=== PATIENT | female | born 1960 | race Caucasian/White ===

== ENCOUNTER 2016-10-29 14:08 | Inpatient (IN) | payer OTHER, MEDICAID ==
--- NOTE | 2016-10-29 15:56 | EDPHY ---
H & P Time Seen by Provider: 10/29/16 15:30 HPI/ROS: Chief complaint. Pressure ulcers, concern for infection HPI. 56-year-old female presents to the emergency department with pressure ulcers that have been present for 2 years. Patient is wheelchair-bound because of MS. However the ulcers have become worse over the past 3-4 days. She has had previous surgery on the ulcers in terms of debridement and trying to close them. However they become worsened especially 1 on her right lower leg has now become quite red. She has had no fever but is more lethargic than usual. No chest discomfort or cough. No shortness of breath. No abdominal pain vomiting or diarrhea. She has an indwelling catheter and the urine is darker than usual. Patient was seen by surgeon at the wound clinic and the ulcers had photos taken of them which Dr. Cabrera in sent over prior to dressing the wound so we did not have to on wrap and then redressed the wound. The concern is for progressive infection. She also had a hematoma on the ankle today that Dr. Rick baeza evacuated at the wound clinic. There was no trauma to the ankle. ROS Constitutional. Increasing weakness and lethargy Eyes. no problems with vision ENT. no sore throat, no nasal drainage Cardiovascular. no chest pain Respiratory. no shortness of breath, no cough Abdominal. no abdominal pain, no nausea/vomiting, no diarrhea . no problems urinating MS. no calf pain/swelling, no neck/back pain, no joint pain Skin. Multiple pressure ulcers Lymph. no swollen glands Neuro. no headache, no dizziness, no difficulty walking or with speech Past Medical/Surgical History: MS and pressure ulcers Social History: , nonsmoker, no alcohol Smoking Status: Former smoker Physical Exam: General Appearance: Alert well-developed female in a wheelchair mild distress. Vital signs are stable however initial blood pressure is 85/62. Patient is afebrile Eyes: Pupils equal and round no pallor or injection. ENT, Mouth: Mucous membranes are moist. Respiratory: There are no retractions, lungs are clear to auscultation. Cardiovascular: Regular rate and rhythm. Gastrointestinal: Abdomen is soft and nontender, no masses, bowel sounds normal. Neurological: Awake and alert, sensory and motor exams grossly normal. Skin: Warm and dry, no rashes. Per Dr. Cabrera in the photos and measurements prior to dressing show an unstageable ulcer on the left buttock that measures 2.5 x 3 x 1.5 cm and tunnels 1 cm; there is an ulcer on the left knee that is stage II pressure ulcer measuring 3.5 x 2.8 x 0 cm; right hip pressure ulcer measuring 1 x 0.5 x 1 cm; right ankle pressure ulcer and hematoma this been evacuated measuring 6 x 5 x 1 cm and is described as stage IV. Musculoskeletal: Neck is supple nontender. Extremities symmetrical, full range of motion. Psychiatric: Patient is oriented X 3, there is no agitation. Constitutional: Initial Vital Signs Temperature (C) 36.7 C 10/29/16 14:23 Heart Rate 74 10/29/16 14:23 Respiratory Rate 18 10/29/16 14:23 Blood Pressure 85/65 L 10/29/16 14:23 O2 Sat (%) 95 10/29/16 14:23 O2 Delivery Mode Room Air O2 (L/minute) 2 Allergies/Adverse Reactions: Penicillins Allergy (Verified 04/05/15 14:22) Unknown Home Medications: Medication Instructions Recorded Baclofen [Baclofen 20 mg (*)] 20 mg PO DAILY@14 04/06/15 Baclofen [Baclofen 20 mg (*)] 40 mg PO BID@06,22 04/06/15 DULoxetine [Cymbalta 60 MG (*)] 60 mg PO HS 04/06/15 Gabapentin 100 mg PO TID 04/06/15 Gabapentin [Gabapentin 800 mg] 800 mg PO TID 04/06/15 Herbals/Supplements -Info Only 1 tab PO DAILY 04/06/15 Meloxicam [Mobic 7.5 mg] 7.5 mg PO HS 04/06/15 Vit #76/Iron,Carb/FA 1 each PO DAILY 04/06/15 [Prenatabs Rx Tablet] oxyCODONE IR [Oxycodone Ir (*)] 5 - 10 mg PO Q4 PRN #30 tab 04/09/15 Docusate Sodium [Colace 100 MG (*)] 100 mg PO DAILY 10/29/16 Interferon Beta-1B [Betaseron] 0.3 mg SQ Q48H 10/29/16 levETIRAcetam [Keppra 500 mg (*)] 500 mg PO BID 10/29/16 morphINE SR [MS Contin/Oramorph SR 30 mg PO BID@06,18 10/29/16 30 mg (*)] Medical Decision Making - Diagnostics Imaging Results: Imaging Impressions Chest X-Ray 10/29/16 15:49 Impression: 1. No acute abnormality. 2. Probable nipple artifacts projected over the lower hemithoraces, and old granulomata. When clinically feasible, PA and lateral upright views in the department with nipple markers is suggested. Findings and recommendations were discussed with TREV DIXON MD at 16:43, on 10/29/2016. One-view chest x-ray shows no obvious pneumonia. Procedures: IV normal saline. Sepsis workup. Urine in the Boyer catheter is fairly dark yellow but appears clear Morphine for pain. Zofran for nausea. Vancomycin intravenously after cultures ED Course/Re-evaluation: Recheck at 5:25 p.m.. Patient is resting comfortably. Patient and I discussed imaging and lab results. We discussed treatment plan including recommendation for admission. She expresses understanding and agreement I consulted and discussed the case with Dr. Acosta, hospitalist, who sees the patient in the emergency department Differential Diagnosis: Patient has multiple ulcers and now extending erythema. I considered sepsis as well. She also has a urinary tract infection. She has a history of MR . Plan is admission, wound care, antibiotics - Data Points Laboratory Results: Laboratory Results 10/29/16 16:08 10/29/16 16:08 10/29/16 10/29/16 10/29/16 16:50 16:08 16:08 WBC RBC Hgb Hct MCV MCH MCHC RDW Plt Count MPV Neut % (Auto) Lymph % (Auto) Logan % (Auto) Eos % (Auto) Baso % (Auto) Nucleat RBC Rel Count Absolute Neuts (auto) Absolute Lymphs (auto) Absolute Monos (auto) Absolute Eos (auto) Absolute Basos (auto) Absolute Nucleated RBC Immature Gran % Immature Gran # PT 13.8 SEC SEC (12.0-15.0) INR 1.07 (0.83-1.16) APTT 29.0 SEC SEC (23.0-38.0) VBG Lactic Acid Sodium 136 mEq/L mEq/L (134-144) Potassium 4.7 mEq/L mEq/L (3.5-5.2) Chloride 100 mEq/L mEq/L (97-110) Carbon Dioxide 25 mEq/l mEq/l (22-31) Anion Gap 11 mEq/L mEq/L (8-16) BUN 18 mg/dL mg/dL (7-23) Creatinine 0.5 mg/dL L mg/dL (0.6-1.0) Estimated GFR > 60 Glucose 97 mg/dL mg/dL (70-100) Calcium 9.1 mg/dL mg/dL (8.5-10.4) Total Bilirubin 0.4 mg/dL mg/dL (0.1-1.4) Procalcitonin Urine Color JEANMARIE Urine Appearance MODERATELY TURBID Urine pH 5.0 (5.0-7.5) Ur Specific [place] 1.021 (1.002-1.030) Urine Protein 1+ H (NEGATIVE) Urine Ketones NEGATIVE (NEGATIVE) Urine Blood 2+ H (NEGATIVE) Urine Nitrate POSITIVE H (NEGATIVE) Urine Bilirubin NEGATIVE (NEGATIVE) Urine Urobilinogen NEGATIVE EU EU (0.2-1.0) Ur Leukocyte Esterase 3+ H (NEGATIVE) Urine RBC 25-50 /hpf H /hpf (0-3) Urine WBC 50-182 /hpf H /hpf (0-3) Ur Epithelial Cells NONE SEEN /lpf /lpf (NONE-1+) Urine Bacteria 4+ /hpf H /hpf (NONE SEEN) Urine Mucus 4+ /lpf H /lpf (NONE-1+) Urine Glucose NEGATIVE (NEGATIVE) 10/29/16 10/29/16 10/29/16 16:08 16:04 16:00 WBC 8.78 10^3/uL 10^3/uL (3.80-9.50) RBC 4.02 10^6/uL L 10^6/uL (4.18-5.33) Hgb 10.9 g/dL L g/dL (12.6-16.3) Hct 35.2 % L % (38.0-47.0) MCV 87.6 fL fL (81.5-99.8) MCH 27.1 pg L pg (27.9-34.1) MCHC 31.0 g/dL L g/dL (32.4-36.7) RDW 16.6 % H % (11.5-15.2) Plt Count 596 10^3/uL H 10^3/uL (150-400) MPV 9.2 fL fL (8.7-11.7) Neut % (Auto) 61.9 % % (39.3-74.2) Lymph % (Auto) 27.7 % % (15.0-45.0) Logan % (Auto) 7.1 % % (4.5-13.0) Eos % (Auto) 2.2 % % (0.6-7.6) Baso % (Auto) 0.5 % % (0.3-1.7) Nucleat RBC Rel Count 0.0 % % (0.0-0.2) Absolute Neuts (auto) 5.45 10^3/uL 10^3/uL (1.70-6.50) Absolute Lymphs (auto) 2.43 10^3/uL 10^3/uL (1.00-3.00) Absolute Monos (auto) 0.62 10^3/uL 10^3/uL (0.30-0.80) Absolute Eos (auto) 0.19 10^3/uL 10^3/uL (0.03-0.40) Absolute Basos (auto) 0.04 10^3/uL 10^3/uL (0.02-0.10) Absolute Nucleated RBC 0.00 10^3/uL 10^3/uL (0-0.01) Immature Gran % 0.6 % % (0.0-1.1) Immature Gran # 0.05 10^3/uL 10^3/uL (0.00-0.10) PT INR APTT VBG Lactic Acid 0.8 mmol/L mmol/L (0.7-2.1) Sodium Potassium Chloride Carbon Dioxide Anion Gap BUN Creatinine Estimated GFR Glucose Calcium Total Bilirubin Procalcitonin 0.11 ng/mL H ng/mL (0.02-0.10) Urine Color Urine Appearance Urine pH Ur Specific [place] Urine Protein Urine Ketones Urine Blood Urine Nitrate Urine Bilirubin Urine Urobilinogen Ur Leukocyte Esterase Urine RBC Urine WBC Ur Epithelial Cells Urine Bacteria Urine Mucus Urine Glucose Medications Given: Baclofen (Baclofen) 40 mg PO BID@,22 ANNE Stop: 04/27/17 21:59 Last Admin: 10/29/16 20:44 Dose: 40 mg Duloxetine HCl (Cymbalta) 60 mg PO [facility] Stop: 04/27/17 20:59 Last Admin: 10/29/16 20:45 Dose: 60 mg Gabapentin (Neurontin) 800 mg PO TID [facility] Stop: 04/27/17 21:59 Last Admin: 10/29/16 20:44 Dose: 800 mg Gabapentin (Neurontin) 100 mg PO TID [facility] Stop: 04/27/17 21:59 Last Admin: 10/29/16 20:46 Dose: 100 mg Levetiracetam (Keppra) 500 mg PO BID [facility] Stop: 04/27/17 20:59 Last Admin: 10/29/16 20:45 Dose: 500 mg Miscellaneous Medication (Meloxicam [Mobic 7.5 Mg]) 7.5 mg PO HS [facility] Stop: 04/27/17 20:59 Last Admin: 10/29/16 20:52 Dose: Not Given Oxycodone HCl (Oxycodone Ir) 5 - 10 mg PO Q4 PRN PRN Reason: Pain, Severe Able to Take PO Stop: 11/08/16 19:15 Last Admin: 10/29/16 20:46 Dose: 10 mg Discontinued Medications Vancomycin/Sodium Chloride (Vancomycin 1 Gm (Premix)) 250 mls @ 250 mls/hr IV EDNOW ONE PRN Reason: Protocol Stop: 10/29/16 16:57 Last Admin: 10/29/16 16:30 Dose: 250 mls Sodium Chloride (Ns) 1,000 mls @ 0 mls/hr IV EDNOW ONE; Wide Open PRN Reason: Protocol Stop: 10/29/16 16:15 Last Admin: 10/29/16 16:29 Dose: 1,000 mls Levofloxacin/Dextrose (Levaquin 750 Mg (Premix)) 150 mls @ 100 mls/hr IV EDNOW ONE PRN Reason: Protocol Stop: 10/29/16 18:54 Last Admin: 10/29/16 18:48 Dose: 150 mls Miscellaneous Medication (Interferon Beta-1b [Betaseron]) 0.3 mg SQ Q48H [facility] Stop: 04/27/17 19:29 Last Admin: 10/29/16 20:50 Dose: Not Given Morphine Sulfate (Morphine) 6 mg IVP EDNOW ONE Stop: 10/29/16 15:59 Last Admin: 08/09/17 16:18 Dose: 6 mg Ondansetron HCl (Zofran) 4 mg IVP EDNOW ONE Stop: 10/29/16 15:59 Last Admin: 10/29/16 16:18 Dose: 4 mg Departure - Departure Disposition: [facility] Acute Clinical Impression: Urinary tract infection Cellulitis Qualifiers: Site of cellulitis: extremity Site of cellulitis of extremity: lower extremity Laterality: right Qualified Code(s): L03.115 - Cellulitis of right lower limb Condition: Fair
[2016-10-29] MEDS ORDERED: VANCOMYCIN HCL/NORMAL SALINE 250 ML IV ONE (15:58)
[2016-10-29] MEDS ORDERED: ONDANSETRON 4 MG/2 ML VIAL IVP ONE (15:58)
[2016-10-29] MEDS ORDERED: NS 1,000 ML IV ONE (16:14)
[2016-10-29 16:18] LABS: % IMMATURE GRANULYOCYTES 0.6 % (0.0-1.1); ABSOLUTE IMMATURE GRANULOCYTES 0.05 10^3/uL (0.00-0.10); ADD DIFF? NO; ADD MORPH? NO; ADD SCAN? NO; ATYPICAL LYMPHOCYTE FLAG 50 (0-99); FRAGMENT RBC FLAG 0 (0-99); HEMATOCRIT 35.2 % (38.0-47.0); HEMOGLOBIN 10.9 g/dL (12.6-16.3); LEFT SHIFT FLG 0 (0-99); LIPEMIA HEMOLYSIS FLAG 80 (0-99); MEAN CELL HEMOGLOBIN 27.1 pg (27.9-34.1); MEAN CELL VOLUME 87.6 fL (81.5-99.8); MEAN PLATELET VOLUME 9.2 fL (8.7-11.7); PLATELET CLUMPS FLAG 20 (0-99); PLATELET COUNT 596 10^3/uL (150-400); RED BLOOD CELL COUNT 4.02 10^6/uL (4.18-5.33); RED CELL DISTRIBUTION WIDTH 16.6 % (11.5-15.2)
[2016-10-29 16:28] LABS: INR 1.07 (0.83-1.16); PROTIME(PATIENT) 13.8 SEC (12.0-15.0)
[2016-10-29 17:09] LABS: COLOR AMBER; LEUKOCYTE ESTERASE,URINE 3+ (NEGATIVE); NITRITE,URINE POSITIVE (NEGATIVE)
[2016-10-29 17:18] LABS: BACTERIA 4+ /hpf (NONE SEEN); MUCUS 4+ /lpf (NONE-1+); RBC,URINE 25-50 /hpf (0-3); WBC,URINE 50-182 /hpf (0-3)
[2016-10-29 17:18] LABS: ANION GAP 11 mEq/L (8-16); BILIRUBIN,TOTAL 0.4 mg/dL (0.1-1.4); CALCIUM 9.1 mg/dL (8.5-10.4); CARBON DIOXIDE 25 mEq/l (22-31); CHLORIDE 100 mEq/L (97-110); CREATININE 0.5 mg/dL (0.6-1.0); GLOMERULAR FILTRATION RATE > 60; GLUCOSE 97 mg/dL (70-100); POTASSIUM 4.7 mEq/L (3.5-5.2); SODIUM 136 mEq/L (134-144)
[2016-10-29] MEDS ORDERED: ONDANSETRON 4 MG/2 ML VIAL IVP PRN (18:53)
[2016-10-29] MEDS ORDERED: ACETAMINOPHEN 325 MG TAB PO PRN (18:53)
--- NOTE | 2016-10-29 19:06 | GHP ---
[f rep st] HISTORY AND PHYSICAL DATE OF ADMISSION: 10/29/2016 CHIEF COMPLAINT: Weakness and pressure ulcers. HISTORY OF PRESENT ILLNESS: This is a 56-year-old female with severe multiple sclerosis who is wheelchair-bound, who was sent in from Dr. Vaughn's office due to worsening weakness. She was seeing Dr. Vaughn for treatment of her multiple wounds which include a left buttock un-stageable ulcer, left knee stage II pressure ulcer, right hip 1 x 0.5 x 1 cm pressure ulcer, and right ankle 6 x 5 x 1 stage IV pressure ulcer. Patient tells me that she is very tired which she attributes to not sleeping well. She has been tolerating a regular diet. She does have a Boyer catheter in place and has not noticed any changes in her urine color or odor. She does not think she has a urinary tract infection. She has not been having any fevers or chills. She is unsure why she has not been sleeping well. PAST MEDICAL HISTORY: Multiple sclerosis. PAST SURGICAL HISTORY: Inguinal hernia repair, cholecystectomy, wound debridement, multiple complex wound closures. MEDICATIONS: Refer to [facility] for details. ALLERGIES: Penicillin. SOCIAL HISTORY: She is and lives with her who cares for her. She denies any alcohol, tobacco, or illicit drug use. FAMILY HISTORY: Significant for coronary artery disease in her mother. REVIEW OF SYSTEMS: Comprehensive 10-point review of systems was done and is negative, except for as mentioned in the HPI. PHYSICAL EXAM: VITAL SIGNS: Blood pressure 90/63, pulse 71, respiratory rate 16, O2 saturation 97% on room air, temperature afebrile. GENERAL: No acute distress. Chronically ill-appearing. HEAD: Normocephalic, atraumatic. EYES: PERRLA. Sclerae anicteric. MOUTH: Moist mucous membranes. NECK: Supple. No lymphadenopathy. CARDIOVASCULAR: S1, S2, no JVD, no lower extremity edema. PULMONARY: Lungs are clear. No wheezes, rales, or rhonchi. Slightly diminished in bilateral bases. ABDOMEN: Soft, nontender, nondistended. No guarding or rebound tenderness. Normoactive bowel sounds. EXTREMITIES: No clubbing or cyanosis. NEURO: Face is symmetric. Cranial nerves 2-12 grossly intact. The patient has weakness in both her legs and is wheelchair-bound. SKIN: There are multiple pressure ulcers present on admission including left buttock, left knee, right hip, and right ankle. DIAGNOSTICS: WBC is 8.78, hemoglobin 10.9, hematocrit 35.2, platelets 596. INR 1.07. Lactic acid was 0.8. Sodium 136, potassium 4.7, chloride 100, BUN 18 , creatinine 0.5, glucose 97. UA positive nitrate, 3+ leukocyte esterase, 50- 182 WBCs. Urine culture from March of 2013 grew Klebsiella and Staph aureus. The Staph aureus was MSSA. Chest x-ray shows no acute abnormalities with the exception of probable nipple artifacts projecting over the lower hemothoraces. ASSESSMENT: This is a 56-year-old female who is wheelchair-bound with history of multiple sclerosis, who was sent to the emergency department due to: 1. Weakness which could be due to the fact that she is not sleeping well. Once again, the patient does not think she has a urinary tract infection. Her UA is consistent with a urinary tract infection; however, she has a chronic Boyer and this result could very well be due to chronic colonization. In any event, she was given a dose of vancomycin and Levaquin in the emergency department. Urine cultures have been sent. For now, I will defer further antibiotics pending further workup. Will order a procalcitonin level. 2. Left buttock un-stageable ulcer, 2.5 x 3 x 1.5 cm; left knee stage 2 pressure ulcer; right hip 1 x 0.5 x 1 cm; right ankle 6 x 5 x 1 stage 4 pressure ulcers that were all present on admission. PLAN: Will consult the patient's surgeon for further wound care advice. The patient is at high risk for VTE and will be started on low molecular weight heparin while here in the hospital. ADDENDUM: After reviewing the patient's home medications, I am concerned that polypharmacy may be contributing to her overall mental status, considering she is on multiple sedatives including short-acting oxycodone, sustained-release morphine, high-dose gabapentin, Keppra, and baclofen. For now, her home medications will be continued, but we may need to consider adjusting the dosages. /[id number]/MODL and [id number]/MODL, 10/29/161917 [facility]
[2016-10-29] MEDS ORDERED: INTERFERON BETA 0.3 MG SQ SCH (19:30)
[2016-10-29] MEDS: BACLOFEN 20 MG TAB PO SCH (20:44)
[2016-10-29] MEDS: GABAPENTIN 400 MG CAP PO SCH (20:44)
[2016-10-29] MEDS: DULoxetine 60 MG CAP PO SCH (20:45)
[2016-10-29] MEDS: levETIRAcetam 500 MG TAB PO SCH (20:45)
[2016-10-29] MEDS: GABAPENTIN 100 MG CAP PO SCH (20:46)
[2016-10-29] MEDS: oxyCODONE IR 5 MG TAB PO PRN (20:46)
[2016-10-29] MEDS: MELOXICAM PO SCH (20:52)
[2016-10-30] MEDS: oxyCODONE IR 5 MG TAB PO PRN ×4 (00:45→20:27)
[2016-10-30] MEDS: morphINE SR 30 MG TAB PO SCH ×2 (04:43→18:12)
[2016-10-30] MEDS: BACLOFEN 20 MG TAB PO SCH ×2 (04:43→21:10)
[2016-10-30 05:27] LABS: % IMMATURE GRANULYOCYTES 0.5 % (0.0-1.1); ABSOLUTE IMMATURE GRANULOCYTES 0.03 10^3/uL (0.00-0.10); ADD DIFF? NO; ADD MORPH? NO; ADD SCAN? NO; ATYPICAL LYMPHOCYTE FLAG 20 (0-99); FRAGMENT RBC FLAG 0 (0-99); HEMOGLOBIN 8.6 g/dL (12.6-16.3); LEFT SHIFT FLG 0 (0-99); LIPEMIA HEMOLYSIS FLAG 80 (0-99); MEAN CELL HEMOGLOBIN 27.1 pg (27.9-34.1); MEAN CELL HEMOGLOBIN CONCENTR. 30.7 g/dL (32.4-36.7); MEAN CELL VOLUME 88.3 fL (81.5-99.8); MEAN PLATELET VOLUME 9.3 fL (8.7-11.7); PLATELET CLUMPS FLAG 0 (0-99); PLATELET COUNT 486 10^3/uL (150-400); RED BLOOD CELL COUNT 3.17 10^6/uL (4.18-5.33); RED CELL DISTRIBUTION WIDTH 16.5 % (11.5-15.2)
[2016-10-30 05:38] LABS: ALANINE AMINOTRANSFERASE 80 IU/L (9-52); ALBUMIN 2.5 g/dL (3.5-5.0); ALKALINE PHOSPHATASE 243 IU/L (38-126); ANION GAP 7 mEq/L (8-16); ASPARTATE AMINOTRANSFERASE 93 IU/L (14-46); BILIRUBIN,TOTAL 0.2 mg/dL (0.1-1.4); CALCIUM 8.3 mg/dL (8.5-10.4); CARBON DIOXIDE 25 mEq/l (22-31); CHLORIDE 105 mEq/L (97-110); CREATININE 0.5 mg/dL (0.6-1.0); GLOMERULAR FILTRATION RATE > 60; GLUCOSE 95 mg/dL (70-100); POTASSIUM 4.2 mEq/L (3.5-5.2); SODIUM 137 mEq/L (134-144); TOTAL PROTEIN 6.5 g/dL (6.3-8.2)
[2016-10-30] MEDS: ENOXAPARIN 40 MG/0.4 ML SYR SC SCH (07:50)
[2016-10-30] MEDS: levETIRAcetam 500 MG TAB PO SCH ×2 (07:51→20:23)
[2016-10-30] MEDS: GABAPENTIN 400 MG CAP PO SCH (07:51)
[2016-10-30] MEDS: GABAPENTIN 100 MG CAP PO SCH ×3 (07:51→21:10)
[2016-10-30] MEDS: PRENATAL VIT 1 EACH TAB PO SCH (07:51)
[2016-10-30] MEDS: DOCUSATE SODIUM 100 MG CAP PO SCH (07:51)
[2016-10-30] MEDS ORDERED: Herbals/Supplements -Info Only PO SCH (09:00)
[2016-10-30] MEDS ORDERED: INTERFERON BETA 0.3 MG SQ SCH (09:00)
--- NOTE | 2016-10-30 09:09 | HOSPPROG ---
Hospitalist Progress Note Assessment/Plan: patient is a 56-year-old female with severe multiple sclerosis and is wheelchair bound. She was sent over by 's office due to worsening weakness. She has had treatment for multiple wounds which include a left buttock unstageable ulcer, left knee stage II pressure ulcer, right hip pressure ulcer and right ankle ulcer. She complains of being very tired and not being able to sleep. Today is my 1st encounter with the patient. Chart reviewed. * Weakness likely multifactorial/ not sleeping well, has MS, ongoing anemia could also be attributed to use of Oxy IR, long-acting morphine, gabapentin , Keppra, and baclofen * anemia will recheck in a.m. could be dilutional * elevated LFTs has no abdominal pain/get a repeat level in a.m. * pyuria with a minimally elevated procalcitonin level suspect she has chronic colonization in the meantime will follow up with urine culture and blood cultures *chronic pain on continuous/chronic opioids spoke arie Kia about my concern of her high dosages of pain meds she does not want them altered/ will cont monitoring her/if cont to be sedate , will decrease doses; *very advanced MS she is unable to remember her neurologist name *severe protein calorie malnutrition w a BMI of 17 will ask dietary to see * multiple skin breakdowns/ulcers exposed ankle tendon/Dr Vaughn to order further imaging * DVT prophylaxis:LMWH *Plan : imaging of ankle tendon, decrease gabapentin a bit, recheck labs in a.m. , will ask PT and OT to see/ if she doesn't improve, will ask neurology to further evaluate to r/o MS exacerbation Subjective: Kia said she is feeling fine. Has no complaints. Objective: Vital Signs Temp Pulse Resp BP Pulse Ox 36.7 C 78 16 97/61 L 99 10/30/16 07:38 10/30/16 07:38 10/30/16 07:38 10/30/16 07:38 10/30/16 07:38 Laboratory Results 10/30/16 05:06 10/30/16 05:06 10/29/16 10/30/16 10/31/16 05:59 05:59 05:59 Intake Total 1550 Output Total 575 Balance 975 PT 13.8 SEC (12.0-15.0) 10/29/16 16:08 INR 1.07 (0.83-1.16) 10/29/16 16:08 - Physical Exam Constitutional: chronically ill appearing, cachectic, No appears nourished Eyes: PERRL Ears, Nose, Mouth, Throat: hearing normal Cardiovascular: regular rate and rhythym Respiratory: no respiratory distress Skin: warm, other (did not evaluate her wounds in detail but discussed them with the computer language coder and Dr Vaughn) Musculoskeletal: generalized weakness Neurologic: other (alert but very soft spoken) Psychiatric: interacting appropriately ICD10 Worksheet Patient Problems: Problems Problem Status Onset Cellulitis Acute Urinary tract infection Acute Chronic wound of extremity Acute
--- NOTE | 2016-10-30 10:26 | WOCRNPDOC ---
WOCRN Advanced Assessment Note - Skin Integrity Problem, Advanced Assess Left Knee Pressure Injury Dressing Type: Allevyn Life Dressing Description: Clean/Dry, Intact Exudate Amount: Minimal Exudate Characteristic(s): Serosanguinous Integumentary Issue Intervention: Dressing Changed, Dressing Initialed & Dated Tayla Wound Tissue: Erythema (minimal) Wound Bed Constitution: Granulation Tissue (100%), Undermining (7-8 oclock 0.3 cm ) Wound Edges: Attached (10-5 oclock), Epibole (from 6-9 oclock) Site Odor: None Site Measurement - Head-to-Toe Length X Width X Depth (cm): 2.7x2.9x0.4 Pressure Injury Stage: Stage 3 Pressure Injury Present on Admit: Yes Skin Integrity Problem Comment: Left medial knee pressure injury. Right Greater Trochanter Pressure Injury Dressing Type: Allevyn Life, Plain Packing Dressing Description: Intact, Shadowed Exudate Characteristic(s): Sanguinopurulent Integumentary Issue Intervention: Dressing Changed, Dressing Initialed & Dated Tayla Wound Tissue: Erythema Wound Bed Constitution: Tunneling (12 oclock 4.5 cm and 7 oclock: 3.6 cm), Undermining (2.0 cm), Mixed Loose & Adhered Slough/Eschar Wound Edges: Not Attached Site Measurement - Head-to-Toe Length X Width X Depth (cm): Lateral: 1.5x1.4x1, Then 3 smaller unstagable wounds are located medial to the previous wound: 2.5x2x0.2 and then the most medial: 1x1x0.3. Pressure Injury Stage: Stage 4 Skin Integrity Problem Comment: Stage 4 pressure injury tunnels underneath the 3 smaller slough filled wounds medial to the original wound. All wounds will likely join into a large stage 4 again. Patient had a previous stage 4 pressure injury on bilateral greater trochanters which were closed by [facility] by primary intervention several months ago. The Left hip stage 4 is currently intact. Wound was flushed with ns and then repacked with cutimed sorbact packing and covered with allevyn life. A 3 cm tail was left out. Esha WREN in room for all care. Left Sacrum Pressure Injury Dressing Type: Allevyn Life, Hydrofera Blue Dressing Description: Clean/Dry, Intact Exudate Amount: Moderate Exudate Characteristic(s): Serosanguinous Integumentary Issue Intervention: Dressing Changed, Dressing Initialed & Dated Tayla Wound Tissue: Erythema (minimal) Wound Bed Color: Black, Yellow, Good Wound Bed Constitution: Undermining (5-2 oclock 0.5 to 2.7 cm at 10 oclock and then back to 0.5 cm (10 oclock is the deepest)), Mixed Loose & Adhered Slough/ Eschar (100%) Wound Edges: Not Attached Site Odor: Slight Site Measurement - Head-to-Toe Length X Width X Depth (cm): 2.5x1.9x1.7 Pressure Injury Stage: Stage 4 Pressure Injury Present on Admit: Yes Skin Integrity Problem Comment: Wound is 100% necrotic. There are several scars in the area and [facility] patient has had both a Advanced Tissue Closure proceedure by Dr. Vicente at [facility] and a myocutaneous flap to the area performed by Dr. Cosme within the past year. Per report this wound was completely closed and is now reopening. Flushed with ns and gauze. Iodoflex applied to wound bed. Covered with non border foam and secured with allevyn. Allergy cross check done. Right Medial Ankle Surgical Wound/Incision Dressing Type: Alginate, Allevyn Life Dressing Description: Saturated Exudate Amount: Excessive Exudate Characteristic(s): Serosanguinous Integumentary Issue Intervention: Dressing Changed, Dressing Initialed & Dated Tayla Wound Tissue: Erythema, Hot, Swollen, Painful/Tender Tayla Wound Swelling: Moderate Wound Bed Constitution: Smooth Tissue, Tunneling (9 oclock 2.1 cm tunnel), Undermining (12-3 oclock 2.7 cm, 4-6 oclock 2.6 cm, ) Site Measurement - Head-to-Toe Length X Width X Depth (cm): 3.4x2.2x1.2 Skin Integrity Problem Comment: Per report from [facility], this is a surgical wound where the patient had a large hematoma which was evacuated by Dr. Vaughn. Area was flushed with ns. Repacked with silver aquacel and covered with allevyn life dressing. Right Lateral Ankle Pressure Injury Dressing Type: Allevyn Life Dressing Description: Clean/Dry, Intact Exudate Amount: Minimal Exudate Characteristic(s): Serosanguinous Integumentary Issue Intervention: Visualized Under Dressing Tayla Wound Tissue: Erythema Wound Bed Color: Red Wound Bed Constitution: Hypergranulation Wound Edges: Epithelizing, Attached Site Measurement - Head-to-Toe Length X Width X Depth (cm): 1x1.3xraised Pressure Injury Stage: Stage 3 Pressure Injury Present on Admit: Yes
[2016-10-30] MEDS ORDERED: BACLOFEN 20 MG TAB PO SCH (14:00)
[2016-10-30] MEDS ORDERED: NS 250 ML IV ONE (15:58)
[2016-10-30] MEDS: INTERFERON BETA 0.3 MG SQ SCH (16:40)
[2016-10-30] MEDS: GABAPENTIN 300 MG CAP PO SCH ×2 (16:40→21:11)
[2016-10-30] MEDS: DULoxetine 60 MG CAP PO SCH (20:23)
--- NOTE | 2016-10-30 20:48 | SOAPPROG ---
SOAP Progress Note Assessment/Plan: Assessment: Kia is well known to me. Debrided in wound healing center on 10/29 sleeping today. Will debride tomorrow and possible wound vac Plan: 10/30/16 20:47 Objective: Vital Signs Temp Pulse Resp BP Pulse Ox 37.2 C 89 165 H 92/55 L 97 10/30/16 19:59 10/30/16 19:59 10/30/16 19:59 10/30/16 19:59 10/30/16 19:59 Laboratory Results 10/30/16 05:06 10/30/16 05:06 10/29/16 10/30/16 10/31/16 05:59 05:59 05:59 Intake Total 1550 930 Output Total 575 650 Balance 975 280 PT 13.8 SEC (12.0-15.0) 10/29/16 16:08 INR 1.07 (0.83-1.16) 10/29/16 16:08 ICD10 Worksheet Patient Problems: Problems Problem Status Onset Cellulitis Acute Urinary tract infection Acute Chronic wound of extremity Acute
[2016-10-30] MEDS: MELOXICAM PO SCH (21:07)
[2016-10-31] MEDS: morphINE SR 30 MG TAB PO SCH (04:53)
[2016-10-31] MEDS: BACLOFEN 20 MG TAB PO SCH (04:53)
[2016-10-31 05:01] LABS: % IMMATURE GRANULYOCYTES 0.4 % (0.0-1.1); ABSOLUTE IMMATURE GRANULOCYTES 0.03 10^3/uL (0.00-0.10); ADD DIFF? NO; ADD MORPH? NO; ADD SCAN? NO; ATYPICAL LYMPHOCYTE FLAG 30 (0-99); FRAGMENT RBC FLAG 0 (0-99); HEMATOCRIT 26.4 % (38.0-47.0); HEMOGLOBIN 8.1 g/dL (12.6-16.3); LEFT SHIFT FLG 0 (0-99); LIPEMIA HEMOLYSIS FLAG 80 (0-99); MEAN CELL HEMOGLOBIN 27.6 pg (27.9-34.1); MEAN CELL HEMOGLOBIN CONCENTR. 30.7 g/dL (32.4-36.7); MEAN CELL VOLUME 90.1 fL (81.5-99.8); MEAN PLATELET VOLUME 9.4 fL (8.7-11.7); PLATELET CLUMPS FLAG 20 (0-99); PLATELET COUNT 428 10^3/uL (150-400); RED BLOOD CELL COUNT 2.93 10^6/uL (4.18-5.33); RED CELL DISTRIBUTION WIDTH 16.6 % (11.5-15.2)
[2016-10-31 05:18] LABS: ALANINE AMINOTRANSFERASE 84 IU/L (9-52); ALBUMIN 2.2 g/dL (3.5-5.0); ALKALINE PHOSPHATASE 334 IU/L (38-126); ANION GAP 6 mEq/L (8-16); ASPARTATE AMINOTRANSFERASE 107 IU/L (14-46); BILIRUBIN,TOTAL 0.2 mg/dL (0.1-1.4); CALCIUM 8.5 mg/dL (8.5-10.4); CARBON DIOXIDE 29 mEq/l (22-31); CHLORIDE 104 mEq/L (97-110); CREATININE 0.5 mg/dL (0.6-1.0); GLOMERULAR FILTRATION RATE > 60; GLUCOSE 88 mg/dL (70-100); POTASSIUM 4.8 mEq/L (3.5-5.2); SODIUM 139 mEq/L (134-144); TOTAL PROTEIN 5.7 g/dL (6.3-8.2)
[2016-10-31] MEDS: ENOXAPARIN 40 MG/0.4 ML SYR SC SCH (09:06)
--- NOTE | 2016-10-31 09:49 | HOSPPROG ---
Hospitalist Progress Note Assessment/Plan: patient is a 56-year-old female with severe multiple sclerosis and is wheelchair bound. She was sent over by 's office due to worsening weakness. She has had treatment for multiple wounds which include a left buttock unstageable ulcer, left knee stage II pressure ulcer, right hip pressure ulcer and right ankle ulcer. She complains of being very tired and not being able to sleep. *minimally responsive patient's RN noted patient snores loudly and O2 sats decrease to 72% opens her eyes w sternal rub and keeps saying she is sleepy will get a stat ABG to eval for Co2 retention/ stat CT of her head will hold all narcotics and gabapentin for now *weakness likely multifactorial/ not sleeping well, has MS, ongoing anemia could also be attributed to use of Oxy IR, long-acting morphine, gabapentin , Keppra, and baclofen * anemia cont to trend down will check stools for OB check iron studies * elevated LFTs cont to trend up/ check hepatitis panel will evaluate her home meds * pyuria with a minimally elevated procalcitonin level due to change in her mental status, will start treatment suspect she has chronic colonization in the meantime will follow up with urine culture blood cx shows no growth initiate Ceftriaxone/ has had no reaction to cefazolin/ will monitor *chronic pain on continuous/chronic opioids hold *very advanced MS she is unable to remember her neurologist name will ask neurology to evaluate *severe protein calorie malnutrition w a BMI of 17 will ask dietary to see * multiple skin breakdowns/ulcers exposed ankle tendon/Dr Vaughn to see today * DVT prophylaxis:LMWH *Plan : stat ABG, stat CT of head/ start abx therapy, ask neurology to see Subjective: Kia awakens w sternal rub/ says she is sleepy. Objective: Vital Signs Temp Pulse Resp BP Pulse Ox 35.9 C L 82 12 84/54 L 94 10/31/16 08:00 10/31/16 08:00 10/31/16 08:00 10/31/16 08:00 10/31/16 08:00 Laboratory Results 10/31/16 04:51 10/31/16 04:51 10/30/16 10/31/16 11/01/16 05:59 05:59 05:59 Intake Total 1550 930 Output Total 575 1300 Balance 975 -370 PT 13.8 SEC (12.0-15.0) 10/29/16 16:08 INR 1.07 (0.83-1.16) 10/29/16 16:08 - Physical Exam Constitutional: chronically ill appearing Cardiovascular: regular rate and rhythym Respiratory: no respiratory distress Genitourinary: retana in urethra Neurologic: other (very little interaction) ICD10 Worksheet Patient Problems: Problems Problem Status Onset Cellulitis Acute Urinary tract infection Acute Chronic wound of extremity Acute
[2016-10-31 09:50] LABS: BASE EXCESS 1.5 mEq/L (-2.5-2.5); BICARBONATE 28 mEq/L (22-26); MEASURED OXYGEN SATURATION 98 % (92-95); PCO2 56 mmHg (34-38); PO2 96 mmHg (65-75); TCO2 30 mEq/L (23-27)
[2016-10-31] MEDS ORDERED: LIDOCAINE 1% *Not for Epidural 20 ML MDV NB STA (09:50)
[2016-10-31] MEDS: GABAPENTIN 100 MG CAP PO SCH (09:59)
[2016-10-31] MEDS: DOCUSATE SODIUM 100 MG CAP PO SCH (09:59)
[2016-10-31] MEDS: GABAPENTIN 300 MG CAP PO SCH (10:00)
[2016-10-31] MEDS: levETIRAcetam 500 MG TAB PO SCH (10:00)
[2016-10-31] MEDS: PRENATAL VIT 1 EACH TAB PO SCH (10:01)
[2016-10-31] MEDS: NS 1,000 ML IV SCH ×2 (10:16→17:18)
--- NOTE | 2016-10-31 13:04 | SOAPPROG ---
SOAP Progress Note Assessment/Plan: Assessment: Kia is well known to me. She is somulent today. Head CT performed. I asked Efraín to come in and discuss goals of care Will wait on debridement until we know the course Plan: 10/30/16 20:47 10/31/16 13:03 Objective: Vital Signs Temp Pulse Resp BP Pulse Ox 35.8 C L 86 12 101/58 L 93 10/31/16 12:00 10/31/16 12:00 10/31/16 12:00 10/31/16 12:00 10/31/16 12:00 Laboratory Results 10/31/16 04:51 10/31/16 04:51 10/30/16 10/31/16 11/01/16 05:59 05:59 05:59 Intake Total 1550 930 Output Total 575 1300 250 Balance 975 -370 -250 PT 13.8 SEC (12.0-15.0) 10/29/16 16:08 INR 1.07 (0.83-1.16) 10/29/16 16:08 ICD10 Worksheet Patient Problems: Problems Problem Status Onset Cellulitis Acute Urinary tract infection Acute Chronic wound of extremity Acute
--- NOTE | 2016-10-31 17:12 | PDPCPN ---
Palliative Care Progress Note Assessment/Plan: Referring provider: Shaneka Nogueira Reason for consult: Complex medical decision making Symptom control HPI: Kia Mayo is a 56 yo female with PMH multiple sclerosis (w/c bound), chronic pain, multiple pressure ulcers, and malnourishment admitted to the hospital with increasing weakness and worsening of her pressure ulcers. She is follow by Dr Hendricks as outpt and has been dealing with pressure ulcers for the past 2 years. With ? of pyuria on admission and started on antibiotics. Ct head completed showing atrophy for acute mental status changes but showing nothing acute. Clinical continues to decline despite being on antibiotics for the past 24 hours. Palliative care consulted for complex medical decision making. Met with Esdras, son and DIL outside of the room this afternoon. Esdras shared that Kia has had MS for 30 years and while it has made her decline physically to being wheelchair bound, she still had a good quality of life doing some of the things she loves. They were out ice fishing a few months ago and Kia was able to catch her own fish. The family states earlier this year Kia also had an infection in which she was mostly non responsive for a few days but then recovered back to her baseline. They are hoping this is the case again and she will be back to her normal self in a few days. Esdras stated they have always said "the lord is in charge and if its her time, then its her time". They have a strong sense of bradly and have talked about dying and neither one are afraid of . Esdras stated Kia has never wanted to be on life support and feels CPR would just "break her body". We discussed being DNR and all the family agrees this is what Kia would want, to allow for a natural if it should occur. We also discussed option of comfort care only if there is no improvement. The family would like to see how Kia does over the next few days but also realistic in that she may not survive this infection. Assessment: Physical: - Pain: general body pain - Oxy IR PRN - MScontin 30 mg BID- might have to switch to fentanyl patch if unable to take in PO - cymbalta and meloxicam as adjuvants - Baclofen TID - gabapentin 400mg TID - Dyspnea: at times apneic - oxygen as needed - would not want to "be on life support" - constipation - at risk on opiates, continue bowel regimen Emotional/psychological: unsure of baseline cognitive status. Family is very involved and supportive Advanced Care Planning: Is patient decisional?: No Code Status: DNR/DNI POMary: Unknown MDPOA but previously Kia had stated for Esdras to be her MDPOA. Plan: COntinue with medical interventions at current level. Family would like to see over the next couple of days how Kia responds. We did discuss if no improvement then continuing medical interventions would be prolonging her . Subjective: unable to assess, somnolent Objective: Social History: to [place] for 35 years. 2 son involved and local. An avid outdoors women who like to ice fish and [place]. She enjoys watching [employer] movies on tv. Medication list reviewed ROS: General: fatigue, weakness, weight loss ENT: negative Resp: dyspnea GI: poor appetite : negative MS: body pain Skin: multiple pressure ulcers Neuro: confusion Psych: negative Functional assessment: PPS: 30% Functional status: dependent on ADLs, IADLs Vital Signs Temp Pulse Resp BP Pulse Ox 36.1 C 95 12 109/64 96 10/31/16 15:44 10/31/16 15:44 10/31/16 15:44 10/31/16 15:44 10/31/16 15:44 Laboratory Results 10/31/16 04:51 10/31/16 04:51 10/30/16 10/31/16 11/01/16 05:59 05:59 05:59 Intake Total 1550 930 Output Total 575 1300 400 Balance 975 -370 -400 PT 13.8 SEC (12.0-15.0) 10/29/16 16:08 INR 1.07 (0.83-1.16) 10/29/16 16:08 Physical Exam - Physical Exam General Appearance: no apparent distress, other (somnolent ) Respiratory: No respiratory distress, No accessory muscle use Skin: normal color, warm/dry Extremities: No pedal edema Neuro/Psych: other (somnolent) ICD10 Worksheet Patient Problems: Problems Problem Status Onset Cellulitis Acute Palliative care encounter Acute Urinary tract infection Acute Chronic wound of extremity Acute - ICD10 Problem Qualifiers (1) Palliative care encounter
[2016-10-31] MEDS: VANCOMYCIN 750 MG in D5W 150 ML IV SCH (17:18)
--- NOTE | 2016-10-31 18:37 | GCON ---
[f rep st] CONSULTATION INFECTIOUS DISEASE CONSULTATION. DATE OF CONSULTATION: 10/31/2016 PROVIDER REQUESTING CONSULT: Shaneka Nogueira NP. REASON FOR CONSULTATION: Altered mental status, query infectious etiology. HISTORY OF PRESENT ILLNESS: A 56-year-old woman with end-stage multiple sclerosis, wheelchair bound, who is under full care from her for years, who has been monitored for multiple ulcers including a left buttock unstageable ulcer, a left knee stage II pressure ulcer, right hip pressure ulcer. In addition, she has developed the rapid onset of a new medial right ankle wound that is 6.5, and stage IV. There was concern that this rapid onset of this ulcer reflects infection. Patient is unable to give a history, due to AMS and entire history obtained from and chart review. She has a chronic Boyer that is placed that is changed on a monthly basis. No changes in bowel habits were noted, no rashes. PAST MEDICAL HISTORY: Multiple sclerosis. PAST SURGICAL HISTORY: Inguinal hernia repair, cholecystectomy, multiple wound debridements and wound closures. MEDICATIONS: Include ceftriaxone started 10/29/2016, baclofen 40 mg twice daily and 20 mg midafternoon, Colace 100 mg daily. Cymbalta 60 mg daily. Lovenox 40 mg subcu, gabapentin 400 mg 3 times daily. Keppra 500 mg twice daily , interferon beta 1, 0.3 mg subcu, oxycodone for severe pain. multivitamin. ALLERGIES: Penicillin in childhood, unknown reaction. SOCIAL HISTORY: , lives with her who cares for her. No tobacco , alcohol or illicit drugs. Her son is also present during exam. FAMILY HISTORY: Positive for coronary artery disease. REVIEW OF SYSTEMS: A complete 10-point review of systems was performed and is negative except as mentioned in HPI. PHYSICAL EXAMINATION: VITAL SIGNS: Blood pressure 100/64, heart rate 95, respiratory rate 12, saturation 96% on 2 L. Her temperature has been low at 35.8, and is currently 36. GENERAL: This is a completely unresponsive, chronically ill-appearing woman, lying in bed, without respiratory distress. HEENT: She is edentulous, slightly dry mucous membranes. NECK: Supple. No meningismus. CARDIOVASCULAR: Regular rate and rhythm. No murmurs. CHEST: Difficult exam but no wheezes, rales or rhonchi were noted. She had diminished breath sounds in the bases. ABDOMEN: Soft, nontender. Bowel sounds are present. : She has a Boyer in place. EXTREMITIES: She had wasting of all her extremities particularly her lower extremities with a wound on her right lateral ankle that was small and a medial wound that was beefy red with obvious tendons without surrounding erythema or purulence. LABS: Creatinine 0.5, AST 107, ALT 84, alkaline phosphatase 334, albumin 2.2, WBC 7.6, hematocrit 26, platelets of 428, 67% neutrophils, 23% lymphocytes. Patient has blood cultures from 08/29 that are no growth to date and wound culture from her buttock swab that showed group A strep and MRSA and from her right ankle that showed group A strep. Urine culture was sent which showed 100, 000 C albicans and 6000 Citrobacter. Urinalysis had pyuria as expected since collected from a Boyer at 50-182 WBCs. Hepatitis serologies were sent and are negative. ASSESSMENT AND PLAN: This is a 56-year-old woman with end-stage multiple sclerosis who is normally interactive now completely altered with concern of rapid onset of new right lower extremity wound with concern for underlying infection. In addition, noted to have elevated LFTs. There was concern for occult infection with atypical sepsis with primary sources relating to wound, biliary or less likely urinary based on culture results . ASSESSMENT 1. AMS/sepsis 2. GAS Wound infection R medial ankle 3. Sacral wound cx positive for GAS, MRSA 4. Elevated LFTs RECOMMENDATIONS: 1. Would add IV vancomycin for coverage of MRSA and would continue ceftriaxone for gastrointestinal coverage until ascending cholangitis or liver abscess excluded. Vancomycin dosed based on CrCl in 40s and patient's weight. Goal trough 10 to 15. 2. Follow blood cultures. 3. Obtain a right upper quadrant ultrasound. Coordination of care with surgical services and hospitalists was performed. Thank you for this consultation. We will continue to follow on a daily basis. /[id number]/MODL MTDD
--- NOTE | 2016-10-31 18:42 | GCON ---
[f rep st] CONSULTATION REFERRING PHYSICIAN: Shaneka Nogueira NP CHIEF COMPLAINT: Advanced multiple sclerosis. HISTORY OF PRESENT ILLNESS: The patient is a very pleasant 56-year-old lady with a [id number] history of multiple sclerosis, managed by Dr. Erwin in [place], as her primary neurologist. She has been on multiple immunomodulating therapies in the past, and most recently, interferon, from what I understand from her . Indeed, he describes what sounds like a progressive course, either primary progressive or secondary progressive multiple sclerosis, not entirely clear. In any case, she has had slow, severe debilitating deficits to the point where she has inability to have normal movement in all 4 extremities, severe spasticity and contractures in the upper extremities, along with changes in mentation and decreased spontaneous verbal output. She has fluctuations with intermittent infections. She does have some sores that occur from immobility at home that are being evaluated currently by ID. Her is fairly clear that her fluctuations are typically related to infection. REVIEW OF SYSTEMS: Ten-point review of system was done and only pertinent in HPI, and has the pertinent negative of any new focal deficit to suggest a new multiple sclerosis lesion. This is per the normal course, according to her , of her fluctuations that have been happening in the last year or 2. IMAGING: She had a head CT done this morning which shows advanced atrophy and white matter changes, consistent with her multiple sclerosis history. PAST MEDICAL HISTORY/SOCIAL HISTORY/FAMILY HISTORY/HOME MEDICATIONS/ALLERGIES: Please refer to Dr. Acosta's history and physical. PHYSICAL EXAMINATION: VITAL SIGNS: Blood pressure is 101/58, temperature 37.1 , respiratory rate 12, O2 sats 94%. NEURO: The patient did open her eyes to voice but had no verbal response. She did have some spontaneous nystagmus on cranial nerve exam. Pupils were equal and reactive. On motor exam, she has severe spasticity throughout maximal in the upper extremities with fixed postures due to this spasticity. No spontaneous movement. Sensory and coordination could not be tested. Gait untestable. fifty total minutes floor time reviewing records, history with hospital medicine and in direct counseling with the family. IMPRESSION/PLAN: 1. Advanced multiple sclerosis. Overall, the patient is in the advanced, late stages of multiple sclerosis and appears to be deteriorating from the underlying disease on a fairly linear course in the last 1 or 2 years. We did discuss end-of-life factors in relation to the severe and advanced multiple sclerosis she has, along with the deficits. Her understands and is in agreement. He also expressed his feelings to treat any possible infection and observe her. I think that is certainly reasonable, and I appreciate my colleagues, Infectious Disease, and hospital medicine managing antibiotics in that regard. There were no symptoms provided by him to suggest a new multiple sclerosis flare, nor were they particularly interested in repeating imaging, etc., now. They will follow up with their primary neurologist, Dr. Erwin, after she is discharged from the hospital. Plan discussed with the patient and hospital medicine team. No further recommendations now. We will continue to follow this very nice lady as needed. Please do not hesitate to call with any questions or changes in neurologic status. /[id number]/MODL MTDD
[2016-10-31] MEDS: MELOXICAM PO SCH (21:26)
[2016-10-31] MEDS: DULoxetine 60 MG CAP PO SCH (21:26)
[2016-10-31] MEDS: levETIRAcetam 500 MG in NS 100 ML IV SCH (21:27)
[2016-11-01] MEDS: NS 1,000 ML IV SCH ×2 (06:00→15:00)
[2016-11-01] MEDS: PRENATAL VIT 1 EACH TAB PO SCH (08:42)
[2016-11-01] MEDS: DOCUSATE SODIUM 100 MG CAP PO SCH (08:42)
[2016-11-01] MEDS: levETIRAcetam 500 MG in NS 100 ML IV SCH ×2 (09:10→20:14)
[2016-11-01] MEDS: VANCOMYCIN 750 MG in D5W 150 ML IV SCH (09:54)
[2016-11-01] MEDS: ENOXAPARIN 40 MG/0.4 ML SYR SC SCH (10:50)
--- NOTE | 2016-11-01 10:58 | HOSPPROG ---
Hospitalist Progress Note Assessment/Plan: patient is a 56-year-old female with severe multiple sclerosis and is wheelchair bound. She was sent over by 's office due to worsening weakness. She has had treatment for multiple wounds which include a left buttock un-stageable ulcer, left knee stage II pressure ulcer, right hip pressure ulcer and right ankle ulcer. She complains of being very tired and not being able to sleep. Reviewed her care with Dr Vaughn and Dr Sol. * metabolic encephalopathy/ minimally responsive on 10/31 Likely in the setting of stage IV pressure ulcer on ankle, polypharmacy, acute illness This has since resolved. CT of head shows nothing acute She was started on IV antibiotics with significant improvement * opioid dependence due to chronic pain ON MS Contin 30 mg twice daily/as well as Oxy IR q.4 hours p.r.n. These have been placed on hold due to the above Spoke with nursing staff and she starts to have pain or any withdrawal to let me know *weakness/she has very advanced MS likely multifactorial/ not sleeping well, has MS, ongoing anemia could also be attributed to use of Oxy IR, long-acting morphine, gabapentin , Keppra, and baclofen *Right ankle wound infection down to tendon Dr Vaughn to debride Thursday if patient stable Vancomycin *left buttock,left hip pressure ulcers * anemia cont to trend down will check stools for OB check iron studies recheck labs in a.m. * elevated LFTs cont to trend up/ hepatitis panel shows no etiology ultrasound shows dilation follow * pyuria suspect she has chronic colonization *hx of seizures changed keppra to IV while not taking in much orally *chronic pain on continuous/chronic opioids hold *very advanced MS appreciate Dr Rodgers seeing her *severe protein calorie malnutrition w a BMI of 17 dietary seeing * DVT prophylaxis:LMWH *Plan : all of her oral medications have been placed on HOLD until further evaluation w ST. These can be restarted after eval. In addition, she has been made a DNR on this admission. When resuming home pain medications, would recommend lower doses Subjective: Kia is smiling, says she has no pain. Objective: Vital Signs Temp Pulse Resp BP Pulse Ox 37.1 C 87 18 100/59 L 96 11/01/16 07:21 11/01/16 07:21 11/01/16 07:21 11/01/16 07:21 11/01/16 07:21 Microbiology 10/30/16 08:40 Urine Culture - Final Urine,Catheterized Jacklyn Albicans Citrobacter Freundii Laboratory Results 10/31/16 04:51 10/31/16 04:51 10/31/16 11/01/16 11/02/16 05:59 05:59 05:59 Intake Total 930 3036 Output Total 1300 1200 Balance -370 1836 PT 13.8 SEC (12.0-15.0) 10/29/16 16:08 INR 1.07 (0.83-1.16) 10/29/16 16:08 - Physical Exam Constitutional: not in pain, chronically ill appearing, cachectic Eyes: PERRL Ears, Nose, Mouth, Throat: hearing normal Cardiovascular: regular rate and rhythym Respiratory: no respiratory distress Gastrointestinal: normoactive bowel sounds Musculoskeletal: generalized weakness, other (has contractures) Neurologic: other (alert, very soft spoken) Psychiatric: interacting appropriately ICD10 Worksheet Patient Problems: Problems Problem Status Onset Cellulitis Acute Palliative care encounter Acute Urinary tract infection Acute Chronic wound of extremity Acute
--- NOTE | 2016-11-01 12:18 | SOAPPROG ---
SOAP Progress Note Assessment/Plan: Assessment: Kia is well known to me. Much improved today. Will allow to rest with antibiotics. If continued improvement likely debridement on Thursday Plan: 10/30/16 20:47 10/31/16 13:03 11/01/16 12:17 Objective: Vital Signs Temp Pulse Resp BP Pulse Ox 37.1 C 87 18 100/59 L 96 11/01/16 07:21 11/01/16 07:21 11/01/16 07:21 11/01/16 07:21 11/01/16 07:21 Microbiology 10/30/16 08:40 Urine Culture - Final Urine,Catheterized Jacklyn Albicans Citrobacter Freundii Laboratory Results 10/31/16 04:51 10/31/16 04:51 10/31/16 11/01/16 11/02/16 05:59 05:59 05:59 Intake Total 930 3036 Output Total 1300 1200 Balance -370 1836 PT 13.8 SEC (12.0-15.0) 10/29/16 16:08 INR 1.07 (0.83-1.16) 10/29/16 16:08 ICD10 Worksheet Patient Problems: Problems Problem Status Onset Cellulitis Acute Palliative care encounter Acute Urinary tract infection Acute Chronic wound of extremity Acute
--- NOTE | 2016-11-01 12:21 | PCMIDPN ---
Assessment/Plan: # AMS - resolved, suspect related to infection, right ankle # R ankle wound infection down to tendon: Group a strep on culture, still with significant pain on the right ankle. Planned debridement on Thursday. --continue Vancomycin --check trough early tomorrow b/c low body weight --dc ceftriaxone, no GNR ID on cultures and see discussion below --will need at least a couple weeks IV therapy, okay to place PICC # Sacral wound, unclear if infected culture showed: Group a strep, MRSA # Elevated LFTs: US showed enlarged CBD but could be post surgical --re-check LFTs tomorrow --ceftriaxone was continued for possible cholangitis and today can assess, no abdominal pain therefore dc ceftriaxone med vanco 750mg IV daily #2 Ceftriaxone 1gm IV daily #3 Micro blood cx 10/29 NGTD Subjective: patient only c/o R ankle multiple family members in room Objective: Vital Signs Temp Pulse Resp BP Pulse Ox 37.1 C 87 18 100/59 L 96 11/01/16 07:21 11/01/16 07:21 11/01/16 07:21 11/01/16 07:21 11/01/16 07:21 Microbiology 10/30/16 08:40 Urine Culture - Final Urine,Catheterized Jacklyn Albicans Citrobacter Freundii Laboratory Results 10/31/16 04:51 10/31/16 04:51 10/31/16 11/01/16 11/02/16 05:59 05:59 05:59 Intake Total 930 3036 Output Total 1300 1200 Balance -370 1836 - Physical Exam General Appearance: alert, no apparent distress, thin, other (chr ill appearance ) Respiratory: other (shallow inspiration, decrease bs bases), No accessory muscle use Cardiac/Chest: regular rate, rhythm Extremities: other (R medial ankle wound with necrotic material base, no surrounding erythema, no purulence but very painful to palpation) - Time Spent With Patient Time Spent with Patient: greater than 35 minutes (care coordinated with Shaneka Nogueira and Haydee Vaughn) Time Spent with Patient: Greater than 35 minutes spent on this patients care, greater than 50% of time spent counseling, educating, and coordinating care regarding the above mentioned plan. ICD10 Worksheet Patient Problems: Problems Problem Status Onset Cellulitis Acute Palliative care encounter Acute Urinary tract infection Acute Chronic wound of extremity Acute
[2016-11-01 13:16] LABS: % IMMATURE GRANULYOCYTES 0.8 % (0.0-1.1); ABSOLUTE IMMATURE GRANULOCYTES 0.06 10^3/uL (0.00-0.10); ADD DIFF? NO; ADD MORPH? NO; ADD SCAN? NO; ATYPICAL LYMPHOCYTE FLAG 10 (0-99); FRAGMENT RBC FLAG 0 (0-99); HEMATOCRIT 30.7 % (38.0-47.0); HEMOGLOBIN 9.1 g/dL (12.6-16.3); LEFT SHIFT FLG 0 (0-99); LIPEMIA HEMOLYSIS FLAG 70 (0-99); MEAN CELL HEMOGLOBIN 27.2 pg (27.9-34.1); MEAN CELL HEMOGLOBIN CONCENTR. 29.6 g/dL (32.4-36.7); MEAN CELL VOLUME 91.9 fL (81.5-99.8); MEAN PLATELET VOLUME 9.4 fL (8.7-11.7); PLATELET CLUMPS FLAG 10 (0-99); PLATELET COUNT 514 10^3/uL (150-400); RED BLOOD CELL COUNT 3.34 10^6/uL (4.18-5.33); RED CELL DISTRIBUTION WIDTH 16.9 % (11.5-15.2)
[2016-11-01] MEDS: INTERFERON BETA 0.3 MG SQ SCH (15:52)
[2016-11-01] MEDS: MELOXICAM PO SCH (19:53)
[2016-11-01] MEDS: DULoxetine 60 MG CAP PO SCH (20:36)
[2016-11-02] MEDS: NS 1,000 ML IV SCH (04:30)
[2016-11-02 05:44] LABS: ALANINE AMINOTRANSFERASE 54 IU/L (9-52); ALBUMIN 2.4 g/dL (3.5-5.0); ALKALINE PHOSPHATASE 257 IU/L (38-126); ANION GAP 10 mEq/L (8-16); ASPARTATE AMINOTRANSFERASE 48 IU/L (14-46); BILIRUBIN,TOTAL 0.5 mg/dL (0.1-1.4); CALCIUM 8.1 mg/dL (8.5-10.4); CARBON DIOXIDE 23 mEq/l (22-31); CHLORIDE 105 mEq/L (97-110); CREATININE 0.4 mg/dL (0.6-1.0); GLOMERULAR FILTRATION RATE > 60; GLUCOSE 78 mg/dL (70-100); POTASSIUM 3.8 mEq/L (3.5-5.2); SODIUM 138 mEq/L (134-144); TOTAL PROTEIN 6.2 g/dL (6.3-8.2)
[2016-11-02 05:53] LABS: % SATURATION 14 % (20-55); TOTAL IRON BINDING CAPACITY 193 ug/dL (260-490)
[2016-11-02] MEDS: levETIRAcetam 500 MG in NS 100 ML IV SCH (08:15)
[2016-11-02] MEDS: DOCUSATE SODIUM 100 MG CAP PO SCH (08:18)
[2016-11-02] MEDS: PRENATAL VIT 1 EACH TAB PO SCH (08:18)
[2016-11-02] MEDS ORDERED: ALTEPLASE 2 MG VIAL IVP PRN (09:04)
[2016-11-02] MEDS: VANCOMYCIN 750 MG in D5W 150 ML IV SCH ×3 (10:16→23:03)
--- NOTE | 2016-11-02 10:17 | PCMIDPN ---
Assessment/Plan: # sepsis/AMS - resolved, suspect related to infection, right ankle # R ankle wound infection down to tendon: Group a strep on culture, still with significant pain on the right ankle. Planned debridement on Thursday. -- continue Vancomycin, trough was undetectable therefore will increase vancomycin to 750 mg IV Q 12 -- due to likely tendon involvement will treat for at least 2 weeks with IV therapy. -- Continue to monitor closely to assess need for imaging of right ankle to evaluate for osteo. Plain film just showed osteoporosis # Sacral wound, unclear if infected culture showed: Group a strep, MRSA # Elevated LFTs: US showed enlarged CBD but could be post surgical. slow trend down of LFTs may have been related to atypical sepsis secondary to right ankle infection med vanco 750mg IV daily #3 s/p 3 days Ceftriaxone 1gm IV daily #3 Micro blood cx 10/29 NGTD Subjective: still with right ankle pain. Denies any specific complaint. Waiting for 's arrival this a.m. Objective: Vital Signs Temp Pulse Resp BP Pulse Ox 37.0 C 77 12 117/68 96 11/02/16 08:00 11/02/16 08:00 11/02/16 08:00 11/02/16 08:00 11/02/16 08:00 Microbiology 10/30/16 08:40 Urine Culture - Final Urine,Catheterized Jacklyn Albicans Citrobacter Freundii Laboratory Results 11/01/16 13:05 11/02/16 05:09 11/01/16 11/02/16 11/03/16 05:59 05:59 05:59 Intake Total 3036 2393 Output Total 1200 1350 Balance 1836 1043 Laboratory Tests 10/30/16 10/31/16 11/02/16 05:06 04:51 05:09 Total Bilirubin 0.2 0.2 0.5 D AST 93 H 107 H 48 H ALT 80 H 84 H 54 H Alkaline Phosphatase 243 H 334 H 257 H - Physical Exam General Appearance: alert, no apparent distress, cachetic EENT: poor dentition Respiratory: other ( shallow inspiration with decreased air movement in the base ), No accessory muscle use Cardiac/Chest: regular rate, rhythm Extremities: other ( wasting of the lower extremities, medial left ankle wound with necrotic material in the base, very tender to palpation no surrounding erythema) Abdomen: non-tender, soft Pelvic Exam: retana Skin: pallor, No rash Neuro/Psych: alert, oriented x 3, depressed affect ICD10 Worksheet Patient Problems: Problems Problem Status Onset Cellulitis Acute Palliative care encounter Acute Urinary tract infection Acute Chronic wound of extremity Acute
[2016-11-02] MEDS: ENOXAPARIN 40 MG/0.4 ML SYR SC SCH (10:18)
--- NOTE | 2016-11-02 10:59 | SOAPPROG ---
SOAP Progress Note Assessment/Plan: Assessment: Kia is well known to me. Much improved today. Will allow to rest with antibiotics. If continued improvement likely debridement on Thursday Kia asking to go home or at least be able to sleep all day if can't go home. Alert today Plan: 10/30/16 20:47 10/31/16 13:03 11/01/16 12:17 11/02/16 10:58 Objective: Vital Signs Temp Pulse Resp BP Pulse Ox 37.0 C 77 12 117/68 96 11/02/16 08:00 11/02/16 08:00 11/02/16 08:00 11/02/16 08:00 11/02/16 08:00 Microbiology 10/30/16 08:40 Urine Culture - Final Urine,Catheterized Jacklyn Albicans Citrobacter Freundii Laboratory Results 11/01/16 13:05 11/02/16 05:09 11/01/16 11/02/16 11/03/16 05:59 05:59 05:59 Intake Total 3036 2393 Output Total 1200 1350 Balance 1836 1043 PT 13.8 SEC (12.0-15.0) 10/29/16 16:08 INR 1.07 (0.83-1.16) 10/29/16 16:08 ICD10 Worksheet Patient Problems: Problems Problem Status Onset Cellulitis Acute Palliative care encounter Acute Urinary tract infection Acute Chronic wound of extremity Acute
[2016-11-02] MEDS ORDERED: SODIUM FERRIC GLUCONAT/SUCROSE 125 MG in NS 100 ML IV ONE (11:05)
--- NOTE | 2016-11-02 11:05 | HOSPPROG ---
Hospitalist Progress Note Assessment/Plan: 56-year-old female with severe multiple sclerosis and is wheelchair bound. She was sent over by 's office due to worsening weakness. She has had treatment for multiple wounds which include a left buttock un-stageable ulcer, left knee stage II pressure ulcer, right hip pressure ulcer and right ankle ulcer. She complains of being very tired and not being able to sleep. Reviewed her care with Dr Vaughn and Dr Sol. First encounter, chart reviewed. * metabolic encephalopathy/ minimally responsive on 10/31 Likely in the setting of stage IV pressure ulcer on ankle, polypharmacy, acute illness This has resolved. CT of head shows nothing acute She was started on IV antibiotics with significant improvement * opioid dependence due to chronic pain On MS Contin 30 mg twice daily/as well as Oxy IR q.4 hours p.r.n. These have been placed on hold due to the above Spoke with nursing staff and she starts to have pain or any withdrawal to let me know *weakness/she has very advanced MS likely multifactorial/ not sleeping well, has MS, ongoing anemia could also be attributed to use of Oxy IR, long-acting morphine, gabapentin , Keppra, and baclofen *Right ankle wound infection down to tendon Dr Vaughn to debride Thursday if patient stable Vancomycin *left buttock,left hip pressure ulcers * anemia stable, iron deficient will check stools for OB will give IV iron * elevated LFTs better today/ hepatitis panel shows no etiology ultrasound shows dilation stable * pyuria suspect she has chronic colonization *hx of seizures changed keppra back to PO *chronic pain on continuous/chronic opioids restart lower and slow *very advanced MS appreciate Dr Rodgers seeing her *severe protein calorie malnutrition w a BMI of 17 dietary seeing * DVT prophylaxis:LMWH *Plan : will restart some of her oral medications. Baclofen and neurotin. she has been made a DNR on this admission. To OR with Dr Vaughn in am Will continue to hold home pain medications. Place PICC line Subjective: Feeling a bit better today. Objective: Vital Signs Temp Pulse Resp BP Pulse Ox 37.0 C 77 12 117/68 96 11/02/16 08:00 11/02/16 08:00 11/02/16 08:00 11/02/16 08:00 11/02/16 08:00 Microbiology 10/30/16 08:40 Urine Culture - Final Urine,Catheterized Jacklyn Albicans Citrobacter Freundii Laboratory Results 11/01/16 13:05 11/02/16 05:09 11/01/16 11/02/16 11/03/16 05:59 05:59 05:59 Intake Total 3036 2393 Output Total 1200 1350 Balance 1836 1043 PT 13.8 SEC (12.0-15.0) 10/29/16 16:08 INR 1.07 (0.83-1.16) 10/29/16 16:08 - Physical Exam Constitutional: not in pain, chronically ill appearing, cachectic Eyes: PERRL, anicteric sclera, EOMI Ears, Nose, Mouth, Throat: moist mucous membranes, hearing normal, ears appear normal Cardiovascular: regular rate and rhythym, No JVD, No edema Respiratory: no respiratory distress, no rales or rhonchi, reduced air movement Gastrointestinal: No tenderness, No ascites, No guarding Skin: warm, pressure ulcer, No mottled Musculoskeletal: pain with ROM, muscular tenderness, generalized weakness Neurologic: AAOx3 Psychiatric: not anxious, not encephalopathic, poor insight, poor judgement, poor memory ICD10 Worksheet Patient Problems: Problems Problem Status Onset Chronic wound of extremity Acute Cellulitis Acute Urinary tract infection Acute Palliative care encounter Acute
[2016-11-02] MEDS: GABAPENTIN 100 MG CAP PO SCH ×2 (15:24→21:02)
[2016-11-02] MEDS: DULoxetine 60 MG CAP PO SCH (21:02)
[2016-11-02] MEDS: levETIRAcetam 500 MG TAB PO SCH (21:02)
[2016-11-02] MEDS: MELOXICAM PO SCH (22:04)
[2016-11-02] MEDS: BACLOFEN 20 MG TAB PO SCH (22:05)
[2016-11-03] MEDS: BACLOFEN 20 MG TAB PO SCH ×2 (05:52→22:51)
[2016-11-03] MEDS: levETIRAcetam 500 MG TAB PO SCH ×2 (08:31→22:51)
[2016-11-03] MEDS: PRENATAL VIT 1 EACH TAB PO SCH (08:31)
[2016-11-03] MEDS: ENOXAPARIN 40 MG/0.4 ML SYR SC SCH (08:31)
[2016-11-03] MEDS: GABAPENTIN 100 MG CAP PO SCH ×3 (08:31→22:51)
[2016-11-03] MEDS: DOCUSATE SODIUM 100 MG CAP PO SCH (08:31)
[2016-11-03] MEDS: VANCOMYCIN 750 MG in D5W 150 ML IV SCH ×2 (11:19→22:51)
--- NOTE | 2016-11-03 11:34 | WOCRNPDOC ---
[facility] Advanced Assessment Note - Skin Integrity Problem, Advanced Assess Left Hip Pressure Injury Site Measurement - Head-to-Toe Length X Width X Depth (cm): 1.5x1.4x1 Right Greater Trochanter Pressure Injury Dressing Type: Allevyn Life, Packing (cutisorb) Dressing Description: Intact, Saturated Exudate Color: Yellow, Red, Brown Exudate Characteristic(s): Cloudy, Purulent, Serosanguinous Integumentary Issue Intervention: Dressing Changed Tayla Wound Tissue: Erythema (minimal: tayla wounds) Tayla Wound Swelling: None Wound Bed Color: Schulenburg, Red, Yellow Wound Bed Constitution: Smooth Tissue, Tunneling, Undermining, Adhered Slough, Loose Slough Wound Edges: Not Attached, Scarred Site Odor: Slight Site Measurement - Head-to-Toe Length X Width X Depth (cm): 1.5x1.4x1 (main wound opening). Please see previous measurements for 3 slough filled wounds that are seperated from the wound opening by a skin bridge. Pressure Injury Stage: Stage 4 Pressure Injury Present on Admit: Yes Skin Integrity Problem Comment: Removed packing and soaked with Vashe. Repacked with 1/2 inch algidex ag+ packing and covered with Allevyn Life. Tunneling/ undermining has not changed since previous assessment. Right Medial Ankle Surgical Wound/Incision Dressing Type: Alginate (Aquacel Ag+), Optilock Dressing Description: Clean/Dry, Intact Exudate Amount: Excessive Exudate Characteristic(s): Serosanguinous Integumentary Issue Intervention: Dressing Changed Tayla Wound Tissue: Erythema, Shiny Wound Bed Color: Schulenburg, Red, White Wound Bed Constitution: Smooth Tissue, Tunneling (9 oclock 2.1 cm), Undermining (12-3 oclock 2.7 cm, 4-6 oclock 2.6 cm), Tendon (1 cm ) Site Measurement - Head-to-Toe Length X Width X Depth (cm): 3.4x2.3x1.2 Skin Integrity Problem Comment: Full thickness wound. Flushed and soaked wound bed with Vashe. Skin prep and drape applied tayla wound. One piece of small simplace black foam cut in 1/2 width-candelaria to tuck into undermining after applying adaptic touch to wound bed (to cover tendon). Vac started at -125 mm Hg continuous suction with no leaks. Ha Ferreira assissted with care. Left Sacrum Pressure Injury Dressing Type: Gauze Dressing Description: Intact Exudate Amount: Moderate Exudate Characteristic(s): Sanguinous Integumentary Issue Intervention: Dressing Applied Tayla Wound Swelling: None Wound Bed Color: Schulenburg, Yellow, Good Wound Bed Constitution: Subcutaneous Fat, Loose Slough Wound Edges: Attached, Well Defined Site Measurement - Head-to-Toe Length X Width X Depth (cm): 4.7x3.2x1.8 Pressure Injury Stage: Stage 4 Pressure Injury Present on Admit: Yes Skin Integrity Problem Comment: Wound was soaked with Vashe after sharp bedside debridement by Ary MITCHELL. Hemostasis had been achieved with silver nitrate. Wound edges protected with skin prep and draped. One piece of black medium simplace foam to wound bed and bridged to left anterior thigh. Vac started at -125 mm Hg continuous suction without any leaks. HOLGER Mai in room for vac placement.
--- NOTE | 2016-11-03 12:33 | HOSPPROG ---
Hospitalist Progress Note Assessment/Plan: 56-year-old female with severe multiple sclerosis and is wheelchair bound. She was sent over by 's office due to worsening weakness. She has had treatment for multiple wounds which include a left buttock stage IV ulcer, left knee stage III ulcer, right hip pressure ulcer and right ankle ulcer. She complains of being very tired and not being able to sleep. Reviewed with wound care and surgery at bedside. * metabolic encephalopathy/ minimally responsive on 10/31 Likely in the setting of stage IV pressure ulcer on ankle, polypharmacy, acute illness This has resolved. CT of head shows nothing acute She was started on IV antibiotics with significant improvement * opioid dependence due to chronic pain was on MS Contin 30 mg twice daily has been placed on hold due to the above restart Oxy IR q.4 hours p.r.n. Spoke with nursing staff and she starts to have pain or any withdrawal to let me know *weakness/she has very advanced MS likely multifactorial/ not sleeping well, has MS, ongoing anemia could also be attributed to use of Oxy IR, long-acting morphine, gabapentin , Keppra, and baclofen *Right ankle wound infection down to tendon debride today Vancomycin *left buttock,left hip pressure ulcers * anemia stable, iron deficient will check stools for OB IV iron given * elevated LFTs better today/ hepatitis panel shows no etiology ultrasound shows dilation stable * pyuria suspect she has chronic colonization *hx of seizures changed keppra back to PO *chronic pain on continuous/chronic opioids restart lower and slow *very advanced MS appreciate Dr Rodgers seeing her *severe protein calorie malnutrition w a BMI of 17 dietary seeing * DVT prophylaxis:LMWH *Plan : will restart some of her oral medications. Baclofen and neurotin. she has been made a DNR on this admission. Will continue to hold some home pain medications. PICC line placed Subjective: Feeling better today. Some pain. Objective: Vital Signs Temp Pulse Resp BP Pulse Ox 37.0 C 62 16 119/67 93 11/03/16 08:00 11/03/16 08:00 11/03/16 08:00 11/03/16 08:00 11/03/16 08:00 Laboratory Results 11/01/16 13:05 11/02/16 05:09 11/02/16 11/03/16 11/04/16 05:59 05:59 05:59 Intake Total 2393 1240 Output Total 1350 2200 Balance 1043 -960 PT 13.8 SEC (12.0-15.0) 10/29/16 16:08 INR 1.07 (0.83-1.16) 10/29/16 16:08 - Physical Exam Constitutional: chronically ill appearing, cachectic Eyes: PERRL, anicteric sclera Ears, Nose, Mouth, Throat: moist mucous membranes, hearing normal Cardiovascular: No JVD, No edema Respiratory: no respiratory distress, no rales or rhonchi Gastrointestinal: No tenderness, No ascites Skin: warm, pressure ulcer Musculoskeletal: generalized weakness, No normal joint ROM Neurologic: AAOx3 Psychiatric: not anxious, not encephalopathic ICD10 Worksheet Patient Problems: Problems Problem Status Onset Cellulitis Acute Palliative care encounter Acute Urinary tract infection Acute Chronic wound of extremity Acute
--- NOTE | 2016-11-03 14:08 | PCMIDPN ---
Assessment/Plan: Assessment: Sepsis secondary to right ankle ulcer infection. Patient has previous back and buttock ulcers with group a strep and MRSA. Patient is being covered with vancomycin 750 mg IV q.12 hours. Will continue this treatment and recheck another trough level in 3-4 more doses. Plan: 1. Continue vancomycin 750 mg IV q.12 hours. 2. Follow vancomycin trough levels. 3. Arrange for post discharge admission to [facility]. 11/03/16 18:42 Subjective: Patient is resting in her hospital bed. She is verbal and communicative. Denies new complaint although still feels weak. is present. Many questions regarding timing of diagnosis. Objective: Vancomycin #4 Vital Signs Temp Pulse Resp BP Pulse Ox 37.0 C 62 16 119/67 93 11/03/16 08:00 11/03/16 08:00 11/03/16 08:00 11/03/16 08:00 11/03/16 08:00 Laboratory Results 11/01/16 13:05 11/02/16 05:09 11/02/16 11/03/16 11/04/16 05:59 05:59 05:59 Intake Total 2393 1240 Output Total 1350 2200 Balance 1043 -960 - Physical Exam General Appearance: WD/WN, alert, no apparent distress, non-toxic, other ( Chronically ill-appearing) Respiratory: lungs clear, normal breath sounds, No respiratory distress Cardiac/Chest: regular rate, rhythm, systolic murmur, No tachycardia, No irregularly irregular Extremities: No non-tender, No normal inspection Skin: normal color, warm/dry, No rash Neuro/Psych: alert, normal mood/affect, oriented x 3 ICD10 Worksheet Patient Problems: Problems Problem Status Onset Cellulitis Acute Methicillin resistant Staphylococcus aureus infection Acute ~10/29/16 Palliative care encounter Acute Urinary tract infection Acute Chronic wound of extremity Acute
[2016-11-03] MEDS: INTERFERON BETA 0.3 MG SQ SCH (17:36)
--- NOTE | 2016-11-03 18:42 | SOAPPROG ---
SOAP Progress Note Assessment/Plan: Assessment: I performed excisional debridement on L sacral pressure ulcer at bedside. Wound vac applied. Debrided down to healthy bleeding fat. Formal procedure note to follow Plan: 11/03/16 18:42 Objective: Vital Signs Temp Pulse Resp BP Pulse Ox 37.1 C 70 16 119/67 94 11/03/16 15:44 11/03/16 15:44 11/03/16 15:44 11/03/16 15:44 11/03/16 15:44 Laboratory Results 11/01/16 13:05 11/02/16 05:09 11/02/16 11/03/16 11/04/16 05:59 05:59 05:59 Intake Total 2393 1240 Output Total 1350 2200 500 Balance 1043 -960 -500 PT 13.8 SEC (12.0-15.0) 10/29/16 16:08 INR 1.07 (0.83-1.16) 10/29/16 16:08 ICD10 Worksheet Patient Problems: Problems Problem Status Onset Cellulitis Acute Methicillin resistant Staphylococcus aureus infection Acute ~10/29/16 Palliative care encounter Acute Urinary tract infection Acute Chronic wound of extremity Acute
--- NOTE | 2016-11-03 19:16 | GPN ---
[f rep st] PROCEDURE NOTE DATE OF PROCEDURE: 11/03/2016 PREPROCEDURE DIAGNOSIS: Pressure ulcer, left buttock stage IV. POSTPROCEDURE DIAGNOSIS: Pressure ulcer, left buttock stage IV. PROCEDURE PERFORMED: Excisional debridement of skin and soft tissue. INDICATIONS: The patient is a 56-year-old woman with severe MS, who has a history of stage IV press ure ulcers and has undergone complex flap closure in the past. Over the past several weeks, she dev eloped a new pressure ulcer of her left sacrum. [facility], and then was admitted for weakness and altered mental status. She is on an offloading mattress. She is a nonsmoker. FINDINGS: Final wound measurements 3.2 x 4.8 x 1.8 cm. DESCRIPTION OF PROCEDURE: The patient was verbally consented for the procedure. A timeout was perf ormed. I infiltrated the tissues with 5 cc of 1% lidocaine. I then excised the skin overlying area s of undermining. I debrided the base of the to reveal a small amount of healthy granulation tissue. The tissue was mostly necrotic fat. I reached mostly healthy bleeding fat. Hemostasis was achiev ed with silver nitrate. I then applied a wound VAC to the area. She tolerated the procedure well. /[id number]/MODL
[2016-11-03] MEDS: DULoxetine 60 MG CAP PO SCH (22:52)
[2016-11-03] MEDS: MELOXICAM PO SCH (22:53)
[2016-11-04] MEDS: oxyCODONE IR 5 MG TAB PO PRN ×6 (01:13→23:28)
[2016-11-04] MEDS: BACLOFEN 20 MG TAB PO SCH ×2 (06:13→22:11)
[2016-11-04] MEDS: GABAPENTIN 100 MG CAP PO SCH ×2 (08:11→15:17)
[2016-11-04] MEDS: levETIRAcetam 500 MG TAB PO SCH ×2 (08:11→22:10)
[2016-11-04] MEDS: DOCUSATE SODIUM 100 MG CAP PO SCH (08:11)
[2016-11-04] MEDS: PRENATAL VIT 1 EACH TAB PO SCH (08:11)
[2016-11-04] MEDS: ENOXAPARIN 40 MG/0.4 ML SYR SC SCH (08:12)
[2016-11-04] MEDS: VANCOMYCIN 750 MG in D5W 150 ML IV SCH (10:37)
--- NOTE | 2016-11-04 11:42 | HOSPPROG ---
Hospitalist Progress Note Assessment/Plan: 56-year-old female with severe multiple sclerosis and is wheelchair bound. She was sent over by 's office due to worsening weakness. She has had treatment for multiple wounds which include a left buttock stage IV ulcer, left knee stage III ulcer, right hip pressure ulcer and right ankle ulcer. She complains of being very tired and not being able to sleep. Reviewed with wound care and surgery at bedside. *sepsis secondary to a right ankle ulcer infection down to the tendon/noted on admission * metabolic encephalopathy/ minimally responsive on 10/31 resolved/was multifactorial CT of head shows nothing acute She was started on IV antibiotics with significant improvement * opioid dependence due to chronic pain was on MS Contin 30 mg twice daily has been placed on hold due to the above restart Oxy IR q.4 hours p.r.n. will avoid restarting long acting/pain is well managed w oxy short acting *weakness/she has very advanced MS *left buttock,left hip pressure ulcers s/p debridement at bedside * anemia stable, iron deficient will check stools for OB IV iron given * elevated LFTs better today/ hepatitis panel shows no etiology ultrasound shows dilation stable * pyuria suspect she has chronic colonization *hx of seizures Keppra po *chronic pain on continuous/chronic opioids restart lower and slow *very advanced MS appreciate Dr Rodgers seeing her *severe protein calorie malnutrition w a BMI of 17 dietary seeing * DVT prophylaxis:LMWH *Plan : will discuss w Dr Vaughn if she thinks patient's can care for her / she has significant wounds, will need vanco for a few more weeks/needs frequent turning/discussed her care with Dr Rodgers. Subjective: Kia says pain is well managed/wants to go home with her . Objective: Vital Signs Temp Pulse Resp BP Pulse Ox 36.2 C 84 12 108/65 94 11/04/16 08:00 11/04/16 08:00 11/04/16 08:00 11/04/16 08:00 11/04/16 08:00 Laboratory Results 11/01/16 13:05 11/02/16 05:09 11/03/16 11/04/16 11/05/16 05:59 05:59 05:59 Intake Total 1240 100 236 Output Total 2200 500 550 Balance -960 -400 -314 PT 13.8 SEC (12.0-15.0) 10/29/16 16:08 INR 1.07 (0.83-1.16) 10/29/16 16:08 - Physical Exam Constitutional: chronically ill appearing, cachectic Eyes: PERRL Ears, Nose, Mouth, Throat: hearing normal Cardiovascular: regular rate and rhythym Respiratory: no respiratory distress Gastrointestinal: normoactive bowel sounds Skin: warm Musculoskeletal: generalized weakness Neurologic: other (alert, very soft spoken) Psychiatric: interacting appropriately ICD10 Worksheet Patient Problems: Problems Problem Status Onset Cellulitis Acute Methicillin resistant Staphylococcus aureus infection Acute ~10/29/16 Palliative care encounter Acute Urinary tract infection Acute Chronic wound of extremity Acute
--- NOTE | 2016-11-04 12:34 | PCMIDPN ---
Assessment/Plan: Assessment/Plan: 1. Sepsis secondary to right ankle ulcer- -wound down to tendon -previous cx with GAS/MRSA -creatinine on 11/02 stable at 0.4. REcheck in Am -Vanco trough very low. recommend adjusting dose to 1g q12 with f/u trough AM. -LFT improved from a couple of days ago. Will recheck Tita. -BLood cx on 10/29 ngtd -Continue current treatment. meds vanco 750mg 12- Subjective: FEver spike this AM. now afebrile. c/o right ankle pain. denies sob, abd pain or diarrhea. Objective: Vital Signs Temp Pulse Resp BP Pulse Ox 36.2 C 84 12 108/65 94 11/04/16 08:00 11/04/16 08:00 11/04/16 08:00 11/04/16 08:00 11/04/16 08:00 Laboratory Results 11/01/16 13:05 11/02/16 05:09 11/03/16 11/04/16 11/05/16 05:59 05:59 05:59 Intake Total 1240 100 236 Output Total 2200 500 550 Balance -960 -400 -314 - Physical Exam General Appearance: alert, no apparent distress Respiratory: lungs clear Cardiac/Chest: regular rate, rhythm Abdomen: non-tender, soft, No distended ICD10 Worksheet Patient Problems: Problems Problem Status Onset Cellulitis Acute Methicillin resistant Staphylococcus aureus infection Acute ~10/29/16 Palliative care encounter Acute Urinary tract infection Acute Chronic wound of extremity Acute
[2016-11-04] MEDS ORDERED: IBUPROFEN 200 MG TAB PO PRN (16:36)
--- NOTE | 2016-11-04 21:46 | SOAPPROG ---
SOAP Progress Note Assessment/Plan: Assessment: Kia is well known to me. S/P debridement of sacrum Wound vac on lower leg and sacrum Plan to place honey dressing on lower leg and wound vac to sacrum for discharge Plan: 10/30/16 20:47 10/31/16 13:03 11/01/16 12:17 11/02/16 10:58 11/04/16 21:45 Objective: Vital Signs Temp Pulse Resp BP Pulse Ox 37.1 C 62 12 107/69 96 11/04/16 16:00 11/04/16 16:00 11/04/16 16:00 11/04/16 16:00 11/04/16 16:00 Laboratory Results 11/01/16 13:05 11/02/16 05:09 11/03/16 11/04/16 11/05/16 05:59 05:59 05:59 Intake Total 0537 668 1504 Output Total 2200 500 550 Balance -960 -400 922 PT 13.8 SEC (12.0-15.0) 10/29/16 16:08 INR 1.07 (0.83-1.16) 10/29/16 16:08 ICD10 Worksheet Patient Problems: Problems Problem Status Onset Cellulitis Acute Methicillin resistant Staphylococcus aureus infection Acute ~10/29/16 Palliative care encounter Acute Urinary tract infection Acute Chronic wound of extremity Acute
[2016-11-04] MEDS: DULoxetine 60 MG CAP PO SCH (22:10)
[2016-11-04] MEDS: GABAPENTIN 400 MG CAP PO SCH (22:11)
[2016-11-04] MEDS: VANCOMYCIN HCL/NORMAL SALINE 250 ML IV SCH (22:11)
[2016-11-04] MEDS: MELOXICAM PO SCH (22:39)
[2016-11-05] MEDS: oxyCODONE IR 5 MG TAB PO PRN (05:17)
[2016-11-05] MEDS: BACLOFEN 20 MG TAB PO SCH (05:17)
[2016-11-05 05:45] LABS: ALANINE AMINOTRANSFERASE 38 IU/L (9-52); ALBUMIN 2.2 g/dL (3.5-5.0); ALKALINE PHOSPHATASE 150 IU/L (38-126); ANION GAP 7 mEq/L (8-16); ASPARTATE AMINOTRANSFERASE 40 IU/L (14-46); BILIRUBIN,TOTAL 0.1 mg/dL (0.1-1.4); CALCIUM 8.2 mg/dL (8.5-10.4); CARBON DIOXIDE 30 mEq/l (22-31); CHLORIDE 104 mEq/L (97-110); CREATININE 0.6 mg/dL (0.6-1.0); GLOMERULAR FILTRATION RATE > 60; GLUCOSE 76 mg/dL (70-100); POTASSIUM 3.6 mEq/L (3.5-5.2); SODIUM 141 mEq/L (134-144); TOTAL PROTEIN 5.8 g/dL (6.3-8.2)
[2016-11-05 05:59] LABS: % IMMATURE GRANULYOCYTES 0.2 % (0.0-1.1); ABSOLUTE IMMATURE GRANULOCYTES 0.01 10^3/uL (0.00-0.10); ADD DIFF? NO; ADD MORPH? NO; ADD SCAN? NO; ATYPICAL LYMPHOCYTE FLAG 90 (0-99); FRAGMENT RBC FLAG 0 (0-99); HEMOGLOBIN 8.9 g/dL (12.6-16.3); LEFT SHIFT FLG 0 (0-99); LIPEMIA HEMOLYSIS FLAG 80 (0-99); MEAN CELL HEMOGLOBIN 27.1 pg (27.9-34.1); MEAN CELL HEMOGLOBIN CONCENTR. 30.7 g/dL (32.4-36.7); MEAN CELL VOLUME 88.4 fL (81.5-99.8); MEAN PLATELET VOLUME 9.4 fL (8.7-11.7); PLATELET CLUMPS FLAG 10 (0-99); PLATELET COUNT 299 10^3/uL (150-400); RED BLOOD CELL COUNT 3.28 10^6/uL (4.18-5.33); RED CELL DISTRIBUTION WIDTH 17.3 % (11.5-15.2)
[2016-11-05] MEDS: GABAPENTIN 400 MG CAP PO SCH ×2 (08:17→16:04)
[2016-11-05] MEDS: PRENATAL VIT 1 EACH TAB PO SCH (08:17)
[2016-11-05] MEDS: ENOXAPARIN 40 MG/0.4 ML SYR SC SCH (08:17)
[2016-11-05] MEDS: DOCUSATE SODIUM 100 MG CAP PO SCH (08:17)
[2016-11-05] MEDS: levETIRAcetam 500 MG TAB PO SCH (08:17)
[2016-11-05 08:34] VITALS: BP 103/64; PULSE 66; RESP 8; TEMP 97.6; O2SAT 92
--- NOTE | 2016-11-05 10:45 | PCMIDPN ---
Assessment/Plan: Assessment: Sepsis secondary to right ankle ulcer infection. Patient has previous back and buttock ulcers with group a strep and MRSA. Patient is being covered with vancomycin 750 mg IV q.12 hours. Will continue this treatment and plan a 2 week total duration. Plan: 1. Continue vancomycin 750 mg IV q.12 hours. 2. Follow vancomycin trough levels. 3. Patient is being sent home and will be it receiving home IV antibiotics. 11/03/16 18:42 11/05/16 18:03 Subjective: Patient is resting in her hospital bed. She has no new complaints. Denies fevers or chills. Objective: Vancomycin # 6 Vital Signs Temp Pulse Resp BP Pulse Ox 36.4 C 66 8 L 103/64 92 11/05/16 08:26 11/05/16 08:26 11/05/16 08:26 11/05/16 08:26 11/05/16 08:26 Laboratory Results 11/05/16 05:14 11/05/16 05:14 11/04/16 11/05/16 11/06/16 05:59 05:59 05:59 Intake Total 100 1472 Output Total 500 1550 Balance -400 -78 - Physical Exam General Appearance: WD/WN, alert, no apparent distress, non-toxic Respiratory: lungs clear, normal breath sounds, No respiratory distress Cardiac/Chest: regular rate, rhythm, No tachycardia Skin: normal color, warm/dry, No rash Neuro/Psych: alert, oriented x 3, No no motor/sensory deficits ICD10 Worksheet Patient Problems: Problems Problem Status Onset Cellulitis Acute Chronic wound of extremity Acute Methicillin resistant Staphylococcus aureus infection Acute ~10/29/16 Palliative care encounter Acute Urinary tract infection Acute
--- NOTE | 2016-11-05 10:48 | PDIAF ---
- Diagnosis Diagnosis: sepsis, R ankle ulcer infection Code Status: Do Not Resuscitate - Medication Management Discharge Medications: Medications to Continue on Transfer Baclofen [Baclofen 20 mg (*)] 20 mg PO DAILY@14 04/06/15 [Last Taken 10/29/16] Baclofen [Baclofen 20 mg (*)] 40 mg PO BID@04/06/15 [Last Taken 10/29/16 06:00] DULoxetine [Cymbalta 60 MG (*)] 60 mg PO HS 04/06/15 [Last Taken 10/28/16] Gabapentin 100 mg PO TID 04/06/15 [Last Taken 10/29/16 14:00] Gabapentin [Gabapentin 800 mg] 800 mg PO TID 04/06/15 [Last Taken 10/29/16 14:00 ] Herbals/Supplements -Info Only 1 tab PO DAILY 04/06/15 [Last Taken 04/05/15] Meloxicam [Mobic 7.5 mg] 7.5 mg PO HS 04/06/15 [Last Taken 10/28/16] Vit #76/Iron,Carb/FA [Prenatabs Rx Tablet] 1 each PO DAILY 04/06/15 [ Last Taken 10/29/16] oxyCODONE IR [Oxycodone Ir (*)] 5 - 10 mg PO Q4 PRN #30 tab 04/09/15 [Last Taken 10/29/16 13:00] Docusate Sodium [Colace 100 MG (*)] 100 mg PO DAILY 10/29/16 [Last Taken ] Interferon Beta-1B [Betaseron] 0.3 mg SQ Q48H 10/29/16 [Last Taken 10/28/16] levETIRAcetam [Keppra 500 mg (*)] 500 mg PO BID 10/29/16 [Last Taken 10/29/16] morphINE SR [MS Contin/Oramorph SR 30 mg (*)] 30 mg PO BID@10/29/16 [Last Taken 10/29/16 06:00] Prison Antibiotics: Vancomycin 1g IV q 12 hours Prison Antibiotic Stop Date: 11/18/16 Discharge Medications: Refer to the Discharge Home Medication list for PRN reason. PICC Care - Routine: Yes - Orders Services needed: Registered Nurse Diet Texture: Regular Texture Diet, Thin Liquids, Meds Whole w/Liquids - Labs/Radiology CBC Date: 11/06/16 (weekly) CMP Date: 11/06/16 (weekly) Creatinine Date: 11/10/16 (weekly) Vanco Trough Date and Time: 11/06/16 and q thu and after until 11/18/16 Call or Fax Lab and Imaging Results to: Dr. Dona Slo - Follow Up Care Current Providers and Referrals: MIGUEL CRUM [Primary Care Provider] - As per Instructions
[2016-11-05] MEDS: VANCOMYCIN HCL/NORMAL SALINE 250 ML IV SCH (11:01)
--- NOTE | 2016-11-05 11:27 | HOSPPROG ---
Hospitalist Progress Note Assessment/Plan: 56-year-old female with severe multiple sclerosis and is wheelchair bound. She was sent over by 's office due to worsening weakness. She has had treatment for multiple wounds which include a left buttock stage IV ulcer, left knee stage III ulcer, right hip pressure ulcer and right ankle ulcer. She complains of being very tired and not being able to sleep. Reviewed with wound care and surgery at bedside. *sepsis secondary to a right ankle ulcer infection down to the tendon/noted on admission * metabolic encephalopathy/ minimally responsive on 10/31 resolved/was multifactorial CT of head shows nothing acute She was started on IV antibiotics with significant improvement * opioid dependence due to chronic pain was on MS Contin 30 mg twice daily has been placed on hold due to the above restart Oxy IR q.4 hours p.r.n. will avoid restarting long acting/pain is well managed w oxy short acting *weakness/she has very advanced MS *left buttock,left hip pressure ulcers s/p debridement at bedside * anemia stable, iron deficient will check stools for OB IV iron given * elevated LFTs better today/ hepatitis panel shows no etiology ultrasound shows dilation stable * pyuria suspect she has chronic colonization *hx of seizures Keppra po *chronic pain on continuous/chronic opioids restart lower and slow *very advanced MS appreciate Dr Rodgers seeing her *severe protein calorie malnutrition w a BMI of 17 dietary seeing * DVT prophylaxis:LMWH *Plan : reviewed her care with Dr Vaughn and Dr Pierce/ will dc home/ patient wants to go home badly with her / Dr Vaughn knows the patient and her well/ they will f/u with Dr Vaughn Subjective: Kia is very excited and happy about returning home. Objective: Vital Signs Temp Pulse Resp BP Pulse Ox 36.4 C 66 8 L 103/64 92 11/05/16 08:26 11/05/16 08:26 11/05/16 08:26 11/05/16 08:26 11/05/16 08:26 Laboratory Results 11/05/16 05:14 11/05/16 05:14 11/04/16 11/05/16 11/06/16 05:59 05:59 05:59 Intake Total 100 1472 Output Total 500 1550 Balance -400 -78 PT 13.8 SEC (12.0-15.0) 10/29/16 16:08 INR 1.07 (0.83-1.16) 10/29/16 16:08 - Physical Exam Constitutional: not in pain, chronically ill appearing Eyes: PERRL Ears, Nose, Mouth, Throat: hearing normal Cardiovascular: regular rate and rhythym Respiratory: no respiratory distress Gastrointestinal: normoactive bowel sounds Skin: warm, other ([address]) Musculoskeletal: generalized weakness Neurologic: AAOx3 Psychiatric: interacting appropriately, not encephalopathic ICD10 Worksheet Patient Problems: Problems Problem Status Onset Cellulitis Acute Methicillin resistant Staphylococcus aureus infection Acute ~10/29/16 Palliative care encounter Acute Urinary tract infection Acute Chronic wound of extremity Acute
--- NOTE | 2016-11-05 11:45 | PDIAF ---
- Diagnosis Diagnosis: sepsis, R ankle ulcer infection Code Status: Do Not Resuscitate - Medication Management Discharge Medications: Medications to Continue on Transfer Baclofen [Baclofen 20 mg (*)] 20 mg PO DAILY@14 04/06/15 [Last Taken 10/29/16] Baclofen [Baclofen 20 mg (*)] 40 mg PO BID@06,22 04/06/15 [Last Taken 10/29/16 06:00] DULoxetine [Cymbalta 60 MG (*)] 60 mg PO HS 04/06/15 [Last Taken 10/28/16] Herbals/Supplements -Info Only 1 tab PO DAILY 04/06/15 [Last Taken 04/05/15] Meloxicam [Mobic 7.5 mg] 7.5 mg PO HS 04/06/15 [Last Taken 10/28/16] Vit #76/Iron,Carb/FA [Prenatabs Rx Tablet] 1 each PO DAILY 04/06/15 [ Last Taken 10/29/16] oxyCODONE IR [Oxycodone Ir (*)] 5 - 10 mg PO Q4 PRN #30 tab 04/09/15 [Last Taken 10/29/16 13:00] Docusate Sodium [Colace 100 MG (*)] 100 mg PO DAILY 10/29/16 [Last Taken ] Interferon Beta-1B [Betaseron] 0.3 mg SQ Q48H 10/29/16 [Last Taken 10/28/16] levETIRAcetam [Keppra 500 mg (*)] 500 mg PO BID 10/29/16 [Last Taken 10/29/16] Acetaminophen [Tylenol 325mg (*)] 650 mg PO Q6 PRN #0 tab 11/05/16 [Last Taken Unknown] Gabapentin [Neurontin 400 MG (*)] 400 mg PO TID cap 11/05/16 [Last Taken Unknown] morphINE SR [MS Contin/Oramorph SR 30 mg (*)] 30 mg PO DAILY #0 11/05/16 [Last Taken 10/29/16 06:00] 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 PICC Care - Routine: Yes - Orders Services needed: Registered Nurse Diet Texture: Regular Texture Diet, Thin Liquids, Meds Whole w/Liquids Wound Care Instructions: lease follow up within 3- 4 weeks of discharge with outpatient [facility] if you continue to have issues with your wounds : You may reach them at [phone] for an appointment and continued management of your wounds. Please call them sheri to schedule your appointment as they fill up quickly. If before that time you have any issues please follow up with your PCP. Left medial knee: Change dressing every other day and prn. 1. Clean and soak wound bed for 5 min with Vashe cleanser. (lay vashe soaked gauze over wound and let sit for 5 min). 2. Skin prep mariana wound. 3. Silvasorb gel to wound bed. 4. Cover with Allevyn Life. Left Sacral dressing: Change every other day and prn. 1. Left medial knee: Change dressing every other day and prn. 1. Clean and soak wound bed for 5 min with Vashe cleanser. ( lay vashe soaked gauze over wound and let sit for 5 min). 2. Skin prep mariana wound. 3. Cut iodoflex (only avail from wound care) to fit wound bed. Remove mesh from one side and place mesh-free side down. If you run out you may subsititute iodosorb from wound cart. Please alert wound care if you run out. enough for 3 dressing changes were in the room on 10/30. 4. Cover with a piece of non border foam (either mepilex or other) cut to fit over iodoflex. Secure with Allevyn Life. Right hip wound change every other day and as needed: 1. Flush wound well with wound cleanser or NS and dry with gauze. 2. Skin prep mariana wound. 3. Use 1/2 inch Algidex which is found in wound cart to pack tunnels and undermining fully but not tightly (and was left in room). 4. Cover with Allevyn Life. Change dressings to right lateral ankle every 2 days and prn. 1. Clean with ns and gauze. 2. Skin prep mariana wound. 3. Silvasorb gel to wound bed. 4. Cover with Allevyn Life. Molly Gonzalez CWJAN Additional: I have decreased Kia's gabapentin dose and would recommend staying on lower dose/ she is much more interactive. Would also take the MS Contin only once a day rather than twice a day because she is too drowsy during the day. You could also talk to you primary care doctor about taking lower dose of MS contin bid. - Labs/Radiology CBC Date: 11/06/16 (weekly) CMP Date: 11/06/16 (weekly) Creatinine Date: 11/10/16 (weekly) Vanco Trough Date and Time: 11/06/16 and q thu and after until 11/18/16 Call or Fax Lab and Imaging Results to: Dr. Dona Sol - Follow Up Care Current Providers and Referrals: Haydee Vaughn MD [Medical Doctor] - MIGUEL CRUM [Primary Care Provider] - As per Instructions
--- NOTE | 2016-11-05 13:49 | WOCRNPDOC ---
WOCRN Advanced Assessment Note - Skin Integrity Problem, Advanced Assess Left Sacrum Pressure Injury Dressing Type: Black Vac Foam (x1), Wound Vac Exudate Amount: None Wound Bed Color: Sinai Wound Bed Constitution: Smooth Tissue (5%), Undermining (0.7 cm 4-12 oclock), Subcutaneous Fat Pressure Injury Stage: Stage 4 Pressure Injury Present on Admit: Yes Skin Integrity Problem Comment: Wound continues to necrose. Cleaned with ns and gauze. Skin prep mariana wound. One small piece of black foam placed in wound bed and bridge vac dressing used. Restarted at -125 mm Hg continuous suction no leaks. Right Medial Ankle Surgical Wound/Incision Dressing Type: Black Vac Foam (x2), Wound Vac Dressing Description: Clean/Dry, Intact Exudate Amount: Moderate (from foam removal; controlled with pressure.) Exudate Characteristic(s): Serosanguinous Integumentary Issue Intervention: Dressing Changed Skin Integrity Problem Comment: Cleaned with ns and gazue. Wound bed applied manuka Lite SAF dressing with Allevyn overlay.
--- NOTE | 2016-11-05 13:52 | GDS ---
[f rep st] DISCHARGE SUMMARY DISCHARGE DIAGNOSES: 1. Sepsis secondary to a right ankle ulcer infection present on admission. 2. Metabolic encephalopathy, resolved. 3. Opioid dependence due to chronic pain. 4. Weakness due to very advanced multiple sclerosis. 5. Left buttock, right hip pressure ulcers. 6. Anemia. 7. Elevated liver function tests. 8. Pyuria. 9. History of seizures. 10. Advanced multiple sclerosis. 11. Severe protein calorie malnutrition with a body mass index of 17. CONSULTATIONS: 1. Dr. Haydee Vaughn. 2. Dr. Karsten Rodgers. 3. Dr. Dona Sol. BRIEF HISTORY: Briefly, the patient is a 56-year-old woman with end-stage multiple sclerosis who is wheelchair-bound, who is under care from her for 11 years. She was brought to the emergency room for weakness and pressure ulcers. She sees Dr. Vaughn in the outpatient setting for treatment of her wounds , which include her left buttock, left knee, right hip and right ankle area. The patient said she has not been sleeping well. In addition, the patient is on opiates for chronic pain secondary to her ulcers and to very advanced MS. During her stay, she became encephalopathic and was minimally responsive. A CT of the head was performed. This showed nothing acute. She was evaluated by Neurology, who thought her MS was advancing. There was concern that she had an infection. It was not clear-cut initially if it was due to an ulcer on her ankle that was down to the tendon or a urinary tract infection. It was noted that she did have sepsis secondary to a right ankle ulcer infection. Her ulcers had group A strep and MRSA. She is being treated with vancomycin. She clinically improved and awoken with decreasing her narcotics and starting antibiotic treatment. Today, the plan is for her to go back home under the care of her . Her has been working on trying to get her a [place] bed to help her with her pressure ulcers. She will follow up with Dr. Vaughn in the outpatient setting. She will continue vancomycin via a PICC line. HOSPITAL COURSE PER PROBLEM: 1. Sepsis secondary to a right ankle ulcer infection. This is down to the tendon. This was noted on admission. She has improved with treatment of vancomycin. 2. Metabolic encephalopathy, multifactorial, resolved. 3. Opioid dependence due to chronic pain. She had been on MS Contin 30 mg twice daily. She is on Oxy-IR q.4 hours. Mentioned to her that she would do best if the MS Contin was in a lower dose or once daily. 4. Weakness. She has very advanced MS. 5. Left buttock, right hip pressure ulcers. She is status post debridement. 6. Anemia, iron deficiency. 7. Elevated LFTs. Hepatitis panel shows no etiology. Improved during her stay. An ultrasound was performed which showed some dilation. 8. Pyuria. Suspect she has chronic colonization with a catheter in place. 9. History of seizures. None during her stay, on Keppra. 10. Very advanced MS. Further followup with her neurologist. 11. Severe protein calorie malnutrition. She has a BMI of 17. CONDITION AT DISCHARGE: Stable. Blood pressure is 103/64, respiratory rate is 16, heart rate is 66, O2 sat on 1 L is 92%. MEDICATIONS AT DISCHARGE: Please see the EMR. DISCHARGE INSTRUCTIONS: 1. To further follow up with Dr. Vaughn. 2. Labs will be faxed to Dr. Sol. 3. If she develops fever, chills, change in her mental status, to return to the emergency room. Also of note, her had decided to make her a do not resuscitate on this admission. >30 minutes discharging and coordinating her care. /[id number]/MODL MTDD
[2016-11-05] MEDS: INTERFERON BETA 0.3 MG SQ SCH (16:10)
== END 2016-11-05 17:50 | disposition home health service (06) | DRG 853 ==
LOC: F3E 20:10
PROVIDERS: ADMIT Family Medicine; ATTEND Family Medicine
PROC: 02HV33Z Insertion of Infusion Device into Superior Vena Cava, Percutaneous Approach (ICD-10-PCS; 2016-11-02)
PROC: 0HB8XZZ Excision of Buttock Skin, External Approach (ICD-10-PCS; principal; 2016-11-03)
DX: A41.02 Sepsis due to Methicillin resistant Staphylococcus aureus (principal); L89.514 Pressure ulcer of right ankle, stage 4; L89.324 Pressure ulcer of left buttock, stage 4; G93.41 Metabolic encephalopathy; E43 Unspecified severe protein-calorie malnutrition; L89.893 Pressure ulcer of other site, stage 3; F11.20 Opioid dependence, uncomplicated; N39.0 Urinary tract infection, site not specified; Z68.1 Body mass index [BMI] 19.9 or less, adult; L89.150 Pressure ulcer of sacral region, unstageable; L89.892 Pressure ulcer of other site, stage 2; L89.219 Pressure ulcer of right hip, unspecified stage; G35 Multiple sclerosis; G89.29 Other chronic pain; D50.9 Iron deficiency anemia, unspecified; Z87.891 Personal history of nicotine dependence; Z99.3 Dependence on wheelchair
CPT/HCPCS: 92526-GN; 92610-GN; 96365; 96366; 97162-GP; 97166-GO; C1751; G0472; G8978-GP-CM; G8979-GP-CM; G8980-GP-CM; G8987-GO-CM; G8988-GO-CM; G8989-GO-CM; G8996-GN-CM; G8997-GN-CJ; G8998-GN-CH; J0696; J1650; J1953; J1956; J2405; J2916; J2997; J3370